=== PATIENT | male | born 1965 | race African-American/Black ===

== ENCOUNTER 2017-12-07 16:43 | Inpatient (IN) | payer OTHER ==
[2017-12-07 19:52] VITALS: BMI 20.5
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
[2017-12-07] MEDS ORDERED: ALBUTEROL SO4 18 GM HFA INHALER IH PRN (21:10)
[2017-12-07] MEDS ORDERED: P-EPHED 60MG/TRIPROLIDI 2.5MG TABLET PO PRN (21:12)
[2017-12-07] MEDS ORDERED: MENTHOL/PHENOL 1 EACH UD MM PRN (21:12)
[2017-12-07] MEDS ORDERED: MAGNESIUM HYDROX 2400MG/30ML ORAL SUSPENSION 30 ML CUP PO PRN (21:12)
[2017-12-07] MEDS ORDERED: NICOTINE POLACRILEX 2 MG GUM BC PRN (21:12)
[2017-12-07] MEDS ORDERED: hydrOXYzine PAMOATE 50 MG CAPSULE (FP) PO PRN (21:12)
[2017-12-07] MEDS ORDERED: MAG HYDROX/AL HYDROX/SIMETH 30 ML UNIT-DOSE CUP PO PRN (21:12)
[2017-12-07] MEDS ORDERED: chlordiazePOXIDE HCL 25 MG CAPSULE PO PRN (21:12)
[2017-12-07] MEDS ORDERED: ACETAMINOPHEN 325 MG TABLET (FP) PO PRN (21:12)
[2017-12-07] MEDS ORDERED: MAGNESIUM CITRATE 300 ML BOTTLE PO PRN (21:12)
[2017-12-07] MEDS ORDERED: IBUPROFEN 400 MG TABLET (FP) PO PRN (21:12)
[2017-12-07] MEDS ORDERED: MELATONIN 5 MG TABLETS PO PRN (22:00)
[2017-12-07] MEDS: THIAMINE HCL 100 MG TABLET (FP) PO SCH (22:58)
[2017-12-07] MEDS: BUPRENORPHINE/NALOXONE 8 MG/2 MG FILM PACKET SL SCH (22:58)
[2017-12-07] MEDS: cloNIDine HCL 0.1 MG TABLET PO SCH (22:58)
[2017-12-07] MEDS: chlordiazePOXIDE HCL 25 MG CAPSULE PO SCH (22:59)
[2017-12-08] MEDS: BUPRENORPHINE/NALOXONE 8 MG/2 MG FILM PACKET SL SCH ×3 (05:42→22:24)
[2017-12-08] MEDS: chlordiazePOXIDE HCL 25 MG CAPSULE PO SCH ×4 (05:42→22:24)
[2017-12-08 10:23] LABS: HEMATOCRIT 35.5 % (35.4-49); HEMOGLOBIN 12.3 GM/dL (11.7-16.9); MCH 33.6 pg (25.7-33.7); MCHC 34.7 g/dl (32.0-35.9); MEAN CELL VOLUME 96.9 fl (80-96); MEAN PLT VOLUME 8.1 fl (7.5-11.1); PLATELET COUNT 242 K/MM3 (134-434); RBC 3.67 M/mm3 (4.00-5.60); WHITE BLOOD COUNT 6.6 K/mm3 (4.0-10.0)
[2017-12-08 10:28] LABS: ALBUMIN 3.2 g/dl (3.4-5.0); ANION GAP 5 (8-16); BLOOD UREA NITROGEN 22 mg/dL (7-18); CALCIUM 8.8 mg/dL (8.5-10.1); CHLORIDE 106 mmol/L (98-107); CO2 30 mmol/L (21-32); GLUCOSE,RANDOM 106 mg/dL (74-106); POTASSIUM 4.1 mmol/L (3.5-5.1); SODIUM 141 mmol/L (136-145)
[2017-12-08 10:33] LABS: ALK PHOS 130 U/L (45-117); BILIRUBIN,TOTAL 0.4 mg/dL (0.2-1.0); CREATININE 1.7 mg/dL (0.7-1.3); SGOT/AST 57 U/L (15-37); SGPT/ALT 33 U/L (12-78)
[2017-12-08] MEDS: PRENATAL VITAMINS W/ FOLIC ACID TABLET (FP) PO SCH (10:38)
[2017-12-08] MEDS: PANTOPRAZOLE 40 MG TABLET (FP) PO SCH (10:38)
[2017-12-08] MEDS: ASPIRIN COATED 81 MG TABLET.EC PO SCH (10:38)
[2017-12-08] MEDS: NIFEdipine E.R. 30 MG TABLET (FP) PO SCH (10:38)
[2017-12-08] MEDS: cloNIDine HCL 0.1 MG TABLET PO SCH ×2 (10:38→22:24)
[2017-12-08] MEDS: NICOTINE 14 MG/24 HOURS TOPICAL PATCH TD SCH (10:39)
[2017-12-08] MEDS: guaiFENesin/D-METHORPHAN HB 10 ML UNIT-DOSE CUPS PO PRN (10:40)
[2017-12-08 10:54] LABS: URINE APPEARANCE CLEAR; URINE BILIRUBIN NEGATIVE (<2.0 mg/dL); URINE BLOOD NEGATIVE (NEGATIVE); URINE COLOR YELLOW; URINE GLUCOSE (UA) NEGATIVE (NEGATIVE); URINE KETONE NEGATIVE (NEGATIVE); URINE LEUK ESTERASE NEGATIVE (NEGATIVE); URINE NITRITE NEGATIVE (NEGATIVE); URINE PROTEIN NEGATIVE (NEGATIVE); URINE UROBILINOGEN NEGATIVE mg/dL (0.2-1.0)
--- NOTE | 2017-12-08 11:35 | EKG ---
Test Reason : Blood Pressure : / mmHG Vent. Rate : 056 BPM Atrial Rate : 056 BPM P-R Int : 162 ms QRS Dur : 108 ms QT Int : 428 ms P-R-T Axes : 083 068 058 degrees QTc Int : 413 ms SINUS BRADYCARDIA OTHERWISE NORMAL ECG WHEN COMPARED WITH ECG OF 07-DEC-2017 23:06, NO SIGNIFICANT CHANGE WAS FOUND Confirmed by IDRIS GATES MD ([id number]) on 12/08/2017 11:35:05 AM Referred By: Confirmed By:IDRIS GATES MD
--- NOTE | 2017-12-08 11:36 | EKG ---
Test Reason : Blood Pressure : / mmHG Vent. Rate : 052 BPM Atrial Rate : 052 BPM P-R Int : 168 ms QRS Dur : 104 ms QT Int : 428 ms P-R-T Axes : 086 063 064 degrees QTc Int : 398 ms SINUS BRADYCARDIA POSSIBLE ANTERIOR INFARCT , AGE UNDETERMINED ABNORMAL ECG WHEN COMPARED WITH ECG OF 18-JUL-2017 18:54, PREMATURE VENTRICULAR COMPLEXES ARE NO LONGER PRESENT Confirmed by KODY TREJO, IDRIS ([id number]) on 12/08/2017 11:36:12 AM Referred By: Confirmed By:IDRIS GATES MD
[2017-12-08] MEDS: AMMONIUM LACTATE 12% LOTION 225 GM BOTTLE TP SCH (14:46)
--- NOTE | 2017-12-08 16:15 | PN ---
[facility] CIWA - CIWA Score Nausea/Vomitin-No Nausea/No Vomiting Muscle Tremors: 3 Anxiety: 4-Mod. Anxious/Guarded Agitation: 4-Moderately Restless Paroxysmal Sweats: No Perspiration Orientation: 0-Oriented Tacttile Disturbances: 3-Moderate Itch/Numb/Burn Auditory Disturbances: 2-Mild Harshness/Frighten Visual Disturbances: 1-Very Mild Sensitivity Headache: 0-None Present CIWA-Ar Total Score: 17 S Progress Note (SOAP) Subjective: Diarrhea, Stomach Cramping, Interrupted Sleep, Body Aches, Tremors. Objective: PATIENT A & O X 3, OBSERVED AMBULATING ON UNIT. NO ACUTE DISTRESS. PATIENT DENIES CHEST PAIN. 12/08/17 16:13 Vital Signs Temperature 96.6 F L 12/08/17 14:39 Pulse Rate 80 12/08/17 14:39 Respiratory Rate 18 12/08/17 14:39 Blood Pressure 101/76 12/08/17 14:39 O2 Sat by Pulse Oximetry (%) Laboratory Tests 12/07/17 12/08/17 12/08/17 23:08 07:40 07:40 WBC 6.6 D RBC 3.67 L Hgb 12.3 Hct 35.5 MCV 96.9 H MCH 33.6 MCHC 34.7 RDW 14.0 Plt Count 242 MPV 8.1 Sodium Potassium Chloride Carbon Dioxide Anion Gap BUN Creatinine Creat Clearance w eGFR Random Glucose Calcium Total Bilirubin AST ALT Alkaline Phosphatase Total Protein Albumin Urine Color Yellow Urine Appearance Clear Urine pH 5.0 Ur Specific [place] 1.019 Urine Protein Negative Urine Glucose (UA) Negative Urine Ketones Negative Urine Blood Negative Urine Nitrite Negative Urine Bilirubin Negative Urine Urobilinogen Negative Ur Leukocyte Esterase Negative RPR Titer HIV 1&2 Antibody Screen Negative HIV P24 Antigen Negative 12/08/17 12/08/17 07:40 07:40 WBC RBC Hgb Hct MCV MCH MCHC RDW Plt Count MPV Sodium 141 Potassium 4.1 Chloride 106 Carbon Dioxide 30 Anion Gap 5 L BUN 22 H D Creatinine 1.7 H D Creat Clearance w eGFR 42.37 Random Glucose 106 D Calcium 8.8 Total Bilirubin 0.4 AST 57 H D ALT 33 Alkaline Phosphatase 130 H Total Protein 6.0 L D Albumin 3.2 L D Urine Color Urine Appearance Urine pH Ur Specific [place] Urine Protein Urine Glucose (UA) Urine Ketones Urine Blood Urine Nitrite Urine Bilirubin Urine Urobilinogen Ur Leukocyte Esterase RPR Titer Nonreactive HIV 1&2 Antibody Screen HIV P24 Antigen LABS NOTED. Assessment: 12/08/17 16:14 WITHDRAWAL SYMPTOMS. Plan: CONTINUE DETOX. INCREASE DAILY PO FLUID INTAKE. D/C IBUPROFEN AND MAGNESIUM-CONTAINING MEDS. FOR ABNORMAL ADMISSION RENAL LAB VALUES. BMP ON 12/10/2017.
[2017-12-08] MEDS: LOPERAMIDE HCL 2 MG CAPSULE PO PRN (16:29)
[2017-12-08] MEDS ORDERED: BISMUTH SUBSALICYLATE 524 MG/30 ML UD PO PRN (16:30)
--- NOTE | 2017-12-08 16:58 | CONSULT ---
[facility] Psychiatric Consult - Data Date of interview: 12/08/17 Admission source: [facility] Identifying data: Readmission to [facility] for this 52 y/o AA male seeking detox treatment on for heroin,alcohol and cocaine dependence.Patient is ,a father of five (claimed nine to another clinician),homeless, unemployed and supported on welfare. Substance Abuse History: Confirmed by patient in my interview.Details in current [facility] report : Smoking history: Current every day smoker. Have you smoked in the past 12 months: Yes. Aproximately how many cigarettes per day: 10. Cigars Per Day: 0. Hx Chewing Tobacco Use: No. Initiated information on smoking cessation: Yes. 'Breaking Loose' booklet given: 12/07/17. - Substance & Tx. History. Hx Alcohol Use: Yes. Hx Substance Use: Yes. Substance Use Type : Alcohol, Cocaine, Heroin. Hx Substance Use Treatment: Yes ([facility]). - Substances Abused. Alcohol. Route: Oral. Frequency: Daily. Amount used: BEER- 1 CASE. Age of first use: 26. Date of Last Use: 12/06/17. Heroin. Route: Inhalation. Frequency: 3-6 times per week. Amount used: 2 BAGS. Age of first use: 34. Date of Last Use: 12/05/17 Medical History: Bronchial asthma,chronic renal disease,past episode of transient ischemic attack (TIA),hypertension,GERD,antecedent of myocardial infarction(1988) and a history of lung surgery () + past treatment fo gonorrhea. Psychiatric History: Past history of one psychiatric hospitalization at [facility].Diagnosed with MDD in 2016.Patient reports that he used to be prescribed prozac 50 mg/day.NOT taken for 15 months as per own account.Lost to psychiatric follow up for several months.Previously known to [employer].Mr Bui denies history of suicide attempts. Physical/Sexual Abuse/Trauma History: Patient denies. Additional Comment: Urine Drug Screen Results: ATA-Cocaine, OPI-Opiates.Noted. Mental Status Exam - Mental Status Exam Alert and Oriented to: Time, Place, Person Cognitive Function: Good Patient Appearance: Well Groomed (thin habitus,medium height,hairstyle : dreadlocks) Mood: Nervous, Withdrawn Affect: Mood Congruent Patient Behavior: Fatigued, Appropriate, Cooperative Speech Pattern: Clear Voice Loudness: Normal Thought Process: Goal Oriented Thought Disorder: Not Present Hallucinations: Denies Suicidal Ideation: Denies Homicidal Ideation: Denies Sleep: Poorly, Difficulty falling asleep Appetite: Good Muscle strength/Tone: Normal Gait/Station: Normal Psychiatric Findings - Problem List ([place] 1, 2,3) (1) Opioid dependence with withdrawal Current Visit: Yes Status: Acute (2) Alcohol dependence with uncomplicated withdrawal Current Visit: Yes Status: Acute (3) Cocaine dependence Current Visit: Yes Status: Acute Qualifiers: Substance use status: uncomplicated Qualified Code(s): F14.20 - Cocaine dependence, uncomplicated Comment: (4) Nicotine dependence Current Visit: Yes Status: Acute Qualifiers: Nicotine product type: cigarettes Substance use status: uncomplicated Qualified Code(s): F17.210 - Nicotine dependence, cigarettes, uncomplicated (5) Substance induced mood disorder Current Visit: Yes Status: Acute (6) Insomnia Current Visit: Yes Status: Acute - Initial Treatment Plan Initial Treatment Plan: Psychoeducation.Sleep hygiene.Detoxification.Ambien 10 mg po hs prn.Patient is made aware of potential for parasomnias.Agrees with this plan of care.Observation.
[2017-12-08] MEDS: THIAMINE HCL 100 MG TABLET (FP) PO SCH (22:24)
[2017-12-08] MEDS: ZOLPIDEM TARTRATE 10 MG TABLET (PARK CARE ONLY) PO PRN (23:53)
[2017-12-09] MEDS: chlordiazePOXIDE HCL 25 MG CAPSULE PO SCH ×3 (05:50→18:15)
[2017-12-09] MEDS: BUPRENORPHINE/NALOXONE 8 MG/2 MG FILM PACKET SL SCH ×3 (05:50→22:25)
[2017-12-09] MEDS: cloNIDine HCL 0.1 MG TABLET PO SCH ×2 (10:37→22:25)
[2017-12-09] MEDS: PANTOPRAZOLE 40 MG TABLET (FP) PO SCH (10:37)
[2017-12-09] MEDS: AMMONIUM LACTATE 12% LOTION 225 GM BOTTLE TP SCH (10:37)
[2017-12-09] MEDS: ASPIRIN COATED 81 MG TABLET.EC PO SCH (10:37)
[2017-12-09] MEDS: NIFEdipine E.R. 30 MG TABLET (FP) PO SCH (10:37)
[2017-12-09] MEDS: PRENATAL VITAMINS W/ FOLIC ACID TABLET (FP) PO SCH (10:37)
[2017-12-09] MEDS: NICOTINE 14 MG/24 HOURS TOPICAL PATCH TD SCH (10:38)
[2017-12-09] MEDS: LIDOCAINE 5% TOPICAL PATCH TP SCH (10:41)
[2017-12-09] MEDS ORDERED: COLLOIDAL OATMEAL 1 BAR EACH TP PRN (11:27)
[2017-12-09] MEDS: guaiFENesin/D-METHORPHAN HB 10 ML UNIT-DOSE CUPS PO PRN (12:58)
--- NOTE | 2017-12-09 20:11 | PN ---
[facility] CIWA - CIWA Score Nausea/Vomitin-No Nausea/No Vomiting Muscle Tremors: 3 Anxiety: 4-Mod. Anxious/Guarded Agitation: 4-Moderately Restless Paroxysmal Sweats: No Perspiration Orientation: 0-Oriented Tacttile Disturbances: 2-Mild Itch/Numbness/Burn Auditory Disturbances: 1-Very Mild Visual Disturbances: 2-Mild Sensitivity Headache: 0-None Present CIWA-Ar Total Score: 16 S Progress Note (SOAP) Subjective: Nausea, Tremors, Body Aches, Fatigue. Patient reports swelling in bilateral lower legs and feet. Patient denies any history of IV drug injection in legs. Patient reports history of vascular disorder and that similar condition has occurred in past. Objective: PATIENT A & O X 3, OBSERVED AMBULATING ON UNIT. NO ACUTE DISTRESS. SWELLING NOTED IN BILATERAL ANKLES AND FEET. NO ERYTHEMA OR WOUNDS NOTED. 12/09/17 20:07 Vital Signs Temperature 97.0 F L 12/09/17 17:55 Pulse Rate 67 12/09/17 17:55 Respiratory Rate 18 12/09/17 17:55 Blood Pressure 129/79 12/09/17 17:55 O2 Sat by Pulse Oximetry (%) Laboratory Tests 12/07/17 12/08/17 12/08/17 23:08 07:40 07:40 WBC 6.6 D RBC 3.67 L Hgb 12.3 Hct 35.5 MCV 96.9 H MCH 33.6 MCHC 34.7 RDW 14.0 Plt Count 242 MPV 8.1 Sodium Potassium Chloride Carbon Dioxide Anion Gap BUN Creatinine Creat Clearance w eGFR Random Glucose Calcium Total Bilirubin AST ALT Alkaline Phosphatase Total Protein Albumin Urine Color Yellow Urine Appearance Clear Urine pH 5.0 Ur Specific [place] 1.019 Urine Protein Negative Urine Glucose (UA) Negative Urine Ketones Negative Urine Blood Negative Urine Nitrite Negative Urine Bilirubin Negative Urine Urobilinogen Negative Ur Leukocyte Esterase Negative RPR Titer HIV 1&2 Antibody Screen Negative HIV P24 Antigen Negative 12/08/17 12/08/17 07:40 07:40 WBC RBC Hgb Hct MCV MCH MCHC RDW Plt Count MPV Sodium 141 Potassium 4.1 Chloride 106 Carbon Dioxide 30 Anion Gap 5 L BUN 22 H D Creatinine 1.7 H D Creat Clearance w eGFR 42.37 Random Glucose 106 D Calcium 8.8 Total Bilirubin 0.4 AST 57 H D ALT 33 Alkaline Phosphatase 130 H Total Protein 6.0 L D Albumin 3.2 L D Urine Color Urine Appearance Urine pH Ur Specific [place] Urine Protein Urine Glucose (UA) Urine Ketones Urine Blood Urine Nitrite Urine Bilirubin Urine Urobilinogen Ur Leukocyte Esterase RPR Titer Nonreactive HIV 1&2 Antibody Screen HIV P24 Antigen LABS NOTED. 12/09/17 20:10 Assessment: 12/09/17 20:08 WITHDRAWAL SYMPTOMS. Plan: CONTINUE DETOX. PATIENT ADVISED TO ELEVATE FEET MUCH POSSIBLE WHEN LYING BED.
[2017-12-09] MEDS: THIAMINE HCL 100 MG TABLET (FP) PO SCH (22:25)
[2017-12-09] MEDS: ZOLPIDEM TARTRATE 10 MG TABLET (PARK CARE ONLY) PO PRN (22:25)
[2017-12-09] MEDS: LIDOCAINE PATCH REMOVAL MC SCH (22:26)
[2017-12-09] MEDS: LOPERAMIDE HCL 2 MG CAPSULE PO PRN (22:29)
[2017-12-09] MEDS: chlordiazePOXIDE 5 MG CAPSULE PO SCH (22:29)
[2017-12-10] MEDS: chlordiazePOXIDE 5 MG CAPSULE PO SCH ×3 (05:38→17:28)
[2017-12-10] MEDS: BUPRENORPHINE/NALOXONE 8 MG/2 MG FILM PACKET SL SCH ×3 (05:39→22:32)
[2017-12-10 10:04] LABS: ANION GAP 2 (8-16); BLOOD UREA NITROGEN 16 mg/dL (7-18); CALCIUM 8.5 mg/dL (8.5-10.1); CHLORIDE 107 mmol/L (98-107); CO2 32 mmol/L (21-32); CREATININE 1.5 mg/dL (0.7-1.3); GLUCOSE,RANDOM 77 mg/dL (74-106); POTASSIUM 4.2 mmol/L (3.5-5.1); SODIUM 141 mmol/L (136-145)
[2017-12-10] MEDS: PANTOPRAZOLE 40 MG TABLET (FP) PO SCH (10:35)
[2017-12-10] MEDS: PRENATAL VITAMINS W/ FOLIC ACID TABLET (FP) PO SCH (10:35)
[2017-12-10] MEDS: ASPIRIN COATED 81 MG TABLET.EC PO SCH (10:35)
[2017-12-10] MEDS: NIFEdipine E.R. 30 MG TABLET (FP) PO SCH (10:35)
[2017-12-10] MEDS: cloNIDine HCL 0.1 MG TABLET PO SCH ×2 (10:35→22:32)
[2017-12-10] MEDS: NICOTINE 14 MG/24 HOURS TOPICAL PATCH TD SCH (10:36)
[2017-12-10] MEDS: AMMONIUM LACTATE 12% LOTION 225 GM BOTTLE TP SCH (10:36)
[2017-12-10] MEDS: LIDOCAINE 5% TOPICAL PATCH TP SCH (10:37)
--- NOTE | 2017-12-10 11:13 | PN ---
[facility] Progress Note (SOAP) Subjective: Shakes sleep disturbance Objective: 12/10/17 11:09 A & O x 3 Ambulating steadily on unit Assessment: 12/10/17 11:09 withdrawal sx Plan: continue detox for repeat labs
[2017-12-10] MEDS: THIAMINE HCL 100 MG TABLET (FP) PO SCH (22:31)
[2017-12-10] MEDS: ZOLPIDEM TARTRATE 10 MG TABLET (PARK CARE ONLY) PO PRN (22:31)
[2017-12-10] MEDS: chlordiazePOXIDE HCL 10 MG CAPSULE PO SCH (22:31)
[2017-12-10] MEDS: LIDOCAINE PATCH REMOVAL MC SCH (23:11)
[2017-12-11] MEDS: chlordiazePOXIDE HCL 10 MG CAPSULE PO SCH (05:27)
[2017-12-11] MEDS: BUPRENORPHINE/NALOXONE 8 MG/2 MG FILM PACKET SL SCH (05:27)
[2017-12-11 09:31] VITALS: BP 154/100; PULSE 72; TEMP 98.3
--- NOTE | 2017-12-11 10:10 | PN ---
Psychiatric Progress Note Vital Signs: Vital Signs Period Temp Pulse Resp BP Sys/Henriquez Pulse Ox Last 24 Hr 96.0 F-98.3 F 64-81 16-18 115-154/79-100 Date of Session: 12/11/17 Chief Complaint:: " I want script for ambien." Current Medications: Active Medications Generic Name Dose Route Start Last Admin Trade Name Freq PRN Reason Stop Dose Admin Acetaminophen 650 mg 12/07/17 21:12 Tylenol - PO Q4H PRN FEVER Albuterol Sulfate 2 puff 12/07/17 21:10 Ventolin Hfa Inhaler - IH Q4H PRN ASTHMA Aspirin 81 mg 12/08/17 10:00 12/10/17 10:35 Ecotrin - PO 81 mg DAILY CHYNA Administration Bismuth Subsalicylate 524 mg 12/08/17 16:30 Pepto-Bismol - PO BID PRN DYSPEPSIA Buprenorphine/Naloxone 1 each 12/07/17 22:00 12/11/17 05:27 Suboxone 8mg/2mg Sl Film - SL 12/14/17 21:59 1 each TID CHYNA Administration Chlordiazepoxide HCl 10 mg 12/10/17 23:00 12/11/17 05:27 Librium - PO 12/11/17 17:01 10 mg A2F-TFO CHYNA Administration Clonidine 0.2 mg 12/07/17 22:00 12/10/17 22:32 Catapres - PO 0.2 mg BID CHYNA Administration Colloidal Oatmeal 1 applic 12/09/17 11:27 Aveeno Soap - TP DAILY PRN HYGEINE Eucalyptus/Menthol/Phenol/Sorbitol 1 each 12/07/17 21:12 Cepastat Lozenge - MM Q4H PRN SORE THROAT Guaifenesin 10 ml 12/07/17 21:12 12/09/17 12:58 Robitussin Dm - PO 10 ml Q6H PRN Administration COUGH Hydroxyzine Pamoate 50 mg 12/07/17 21:12 Vistaril - PO Q4H PRN AGITATION Lactic Acid 1 applic 12/08/17 10:00 12/10/17 10:36 Lac-Hydrin 12 TP 1 applic DAILY CHYNA Administration Lidocaine 1 patch 12/09/17 10:15 12/10/17 10:37 Lidoderm Patch - TP 1 patch DAILY CHYNA Administration Loperamide HCl 4 mg 12/07/17 21:12 12/09/17 22:29 Imodium - PO 4 mg Q6H PRN Administration DIARRHEA Melatonin 5 mg 12/07/17 22:00 Melatonin PO HS PRN INSOMNIA Miscellaneous 1 each 12/09/17 22:00 12/10/17 23:11 Lidoderm Patch Removal MC 1 each DAILY@2200 CHYNA Administration Nicotine 14 mg 12/08/17 10:00 12/10/17 10:36 Nicoderm Patch - TD 14 mg DAILY CHYNA Administration Nicotine Polacrilex 2 mg 12/07/17 21:12 Nicorette Gum - BC Q2H PRN NICOTINE REPLACEMENT RX Nifedipine 30 mg 12/08/17 10:00 12/10/17 10:35 Procardia Xl - PO 30 mg DAILY CHYNA Administration Pantoprazole Sodium 40 mg 12/08/17 10:00 12/10/17 10:35 Protonix - PO 40 mg DAILY CHYNA Administration Multivit/Folic Acid/Iron 1 tab 12/08/17 10:00 12/10/17 10:35 Vitamins (Sjr) - PO 1 tab DAILY CHYNA Administration Pseudoephedrine/Triprolidine 1 combo 12/07/17 21:12 Actifed - PO TID PRN NASAL CONGESTION Thiamine HCl 100 mg 12/07/17 22:00 12/10/17 22:31 Vitamin B1 - PO 100 mg HS CHYNA Administration Zolpidem Tartrate 10 mg 12/08/17 22:00 12/10/17 22:31 Ambien - PO 10 mg HS PRN Administration INSOMNIA Psychiatric Treatment Plan - Problem List (3) Cocaine dependence Qualifiers: Substance use status: uncomplicated Qualified Code(s): F14.20 - Cocaine dependence, uncomplicated Comment: (4) Nicotine dependence Qualifiers: Nicotine product type: cigarettes Substance use status: uncomplicated Qualified Code(s): F17.210 - Nicotine dependence, cigarettes, uncomplicated (6) Insomnia Qualifiers: Insomnia type: unspecified Qualified Code(s): G47.00 - Insomnia, unspecified
[2017-12-11] MEDS: cloNIDine HCL 0.1 MG TABLET PO SCH (10:30)
[2017-12-11] MEDS: NIFEdipine E.R. 30 MG TABLET (FP) PO SCH (10:30)
[2017-12-11] MEDS: PRENATAL VITAMINS W/ FOLIC ACID TABLET (FP) PO SCH (10:30)
[2017-12-11] MEDS: ASPIRIN COATED 81 MG TABLET.EC PO SCH (10:30)
[2017-12-11] MEDS: PANTOPRAZOLE 40 MG TABLET (FP) PO SCH (10:30)
[2017-12-11] MEDS: NICOTINE 14 MG/24 HOURS TOPICAL PATCH TD SCH (11:15)
[2017-12-11] MEDS: AMMONIUM LACTATE 12% LOTION 225 GM BOTTLE TP SCH (11:15)
[2017-12-11] MEDS: LIDOCAINE 5% TOPICAL PATCH TP SCH (11:16)
--- NOTE | 2017-12-11 12:12 | PN ---
[facility] Progress Note (SOAP) Subjective: Patient denies current Detox symptoms and reports that he feels well overall. Objective: PATIENT A & O X 3, OBSERVED AMBULATING ON UNIT. NO ACUTE DISTRESS. 12/11/17 12:11 Vital Signs Temperature 98.3 F 12/11/17 09:30 Pulse Rate 72 12/11/17 09:30 Respiratory Rate 18 12/11/17 09:30 Blood Pressure 154/100 12/11/17 09:30 O2 Sat by Pulse Oximetry (%) Laboratory Tests 12/07/17 12/08/17 12/08/17 23:08 07:40 07:40 WBC 6.6 D RBC 3.67 L Hgb 12.3 Hct 35.5 MCV 96.9 H MCH 33.6 MCHC 34.7 RDW 14.0 Plt Count 242 MPV 8.1 Sodium Potassium Chloride Carbon Dioxide Anion Gap BUN Creatinine Creat Clearance w eGFR Random Glucose Calcium Total Bilirubin AST ALT Alkaline Phosphatase Total Protein Albumin Urine Color Yellow Urine Appearance Clear Urine pH 5.0 Ur Specific [place] 1.019 Urine Protein Negative Urine Glucose (UA) Negative Urine Ketones Negative Urine Blood Negative Urine Nitrite Negative Urine Bilirubin Negative Urine Urobilinogen Negative Ur Leukocyte Esterase Negative RPR Titer HIV 1&2 Antibody Screen Negative HIV P24 Antigen Negative 12/08/17 12/08/17 12/10/17 07:40 07:40 07:00 WBC RBC Hgb Hct MCV MCH MCHC RDW Plt Count MPV Sodium 141 141 Potassium 4.1 4.2 Chloride 106 107 Carbon Dioxide 30 32 Anion Gap 5 L 2 L BUN 22 H D 16 D Creatinine 1.7 H D 1.5 H Creat Clearance w eGFR 42.37 Random Glucose 106 D 77 D Calcium 8.8 8.5 Total Bilirubin 0.4 AST 57 H D ALT 33 Alkaline Phosphatase 130 H Total Protein 6.0 L D Albumin 3.2 L D Urine Color Urine Appearance Urine pH Ur Specific [place] Urine Protein Urine Glucose (UA) Urine Ketones Urine Blood Urine Nitrite Urine Bilirubin Urine Urobilinogen Ur Leukocyte Esterase RPR Titer Nonreactive HIV 1&2 Antibody Screen HIV P24 Antigen LABS NOTED. Assessment: 12/11/17 12:12 COMPLETION OF DETOX REGIMEN. Plan: PATIENT SCHEDULED FOR DISCHARGE FROM DETOX UNIT TODAY.
--- NOTE | 2017-12-11 12:19 | DS ---
[facility] Detox Discharge Summary Admission Date: 12/07/17 Discharge Date: 12/11/17 - History Present History: Alcohol Dependence, Cocaine Dependence, Opioid Dependence Additional Comments: PATIENT GOING HOME FOR TIME BEING, AND WILL CONTACT [facility] ( [place] FOR POSSIBLE ADMISSION AT A LATER DATE. PATIENT ADVISED TO FOLLOW -UP WITH MEDICAL PROVIDER DR. Gregor BORRERO MD ([facility].) AFTER DISCHARGE FROM DETOX FOR MEDICAL EVALUATION AND FOR HISTORY OF HTN, FOR ABNORMAL RENAL LABS DROWN WHILE ADMITTED FOR DETOX, AND FOR SUBOXONE MAINTENANCE. PATIENT WAS DISCHARGED FORM DETOX UNIT IN STABLE MEDICAL CONDITION. Pertinent Past History: HTN, Depression, GERD, Dry Skin Dermatitis, Poor Skin Turgor, Asthma. - Physical Exam Results Vital Signs: Vital Signs Temperature 98.3 F 12/11/17 09:30 Pulse Rate 72 12/11/17 09:30 Respiratory Rate 18 12/11/17 09:30 Blood Pressure 154/100 12/11/17 09:30 O2 Sat by Pulse Oximetry (%) Pertinent Admission Physical Exam Findings: WITHDRAWAL SYMPTOMS. Laboratory Tests 12/07/17 12/08/17 12/08/17 23:08 07:40 07:40 WBC 6.6 D RBC 3.67 L Hgb 12.3 Hct 35.5 MCV 96.9 H MCH 33.6 MCHC 34.7 RDW 14.0 Plt Count 242 MPV 8.1 Sodium Potassium Chloride Carbon Dioxide Anion Gap BUN Creatinine Creat Clearance w eGFR Random Glucose Calcium Total Bilirubin AST ALT Alkaline Phosphatase Total Protein Albumin Urine Color Yellow Urine Appearance Clear Urine pH 5.0 Ur Specific [place] 1.019 Urine Protein Negative Urine Glucose (UA) Negative Urine Ketones Negative Urine Blood Negative Urine Nitrite Negative Urine Bilirubin Negative Urine Urobilinogen Negative Ur Leukocyte Esterase Negative RPR Titer HIV 1&2 Antibody Screen Negative HIV P24 Antigen Negative 12/08/17 12/08/17 12/10/17 07:40 07:40 07:00 WBC RBC Hgb Hct MCV MCH MCHC RDW Plt Count MPV Sodium 141 141 Potassium 4.1 4.2 Chloride 106 107 Carbon Dioxide 30 32 Anion Gap 5 L 2 L BUN 22 H D 16 D Creatinine 1.7 H D 1.5 H Creat Clearance w eGFR 42.37 Random Glucose 106 D 77 D Calcium 8.8 8.5 Total Bilirubin 0.4 AST 57 H D ALT 33 Alkaline Phosphatase 130 H Total Protein 6.0 L D Albumin 3.2 L D Urine Color Urine Appearance Urine pH Ur Specific [place] Urine Protein Urine Glucose (UA) Urine Ketones Urine Blood Urine Nitrite Urine Bilirubin Urine Urobilinogen Ur Leukocyte Esterase RPR Titer Nonreactive HIV 1&2 Antibody Screen HIV P24 Antigen LABS NOTED. - Treatment Hospital Course: Detox Protocol Followed, Detoxed Safely, Responded well, Discharged Condition Good, Rehab Referral Accepted Patient has Accepted a Rehab Referral to: PT WILL APPLY FOR ADMISSION AT [facility] AT A LATER DATE. - Medication Discharge Medications: Ambulatory Orders Ammonium Lactate Lotion [Lac-Hydrin 12% Lotion -] 1 applic TP ASDIR 07/18/17 Esomeprazole Magnesium 40 mg PO DAILY 07/18/17 Nifedipine [Nifedipine ER] 30 mg PO DAILY 07/18/17 Albuterol Sulfate Inhaler - [Ventolin Hfa Inhaler -] 1 - 2 inh PO Q4H PRN #1 inhaler 12/11/17 Aspirin [Ecotrin] 81 mg PO DAILY #30 tablet.dr 12/11/17 Ferrous Sulfate [Feosol] 325 mg PO DAILY #30 tablet 12/11/17 Nifedipine ER [Procardia XL -] 30 mg PO DAILY #30 tab.er.24 12/11/17 - Diagnosis (1) Skin turgor poor Status: Acute (2) Alcohol dependence with uncomplicated withdrawal Status: Acute (3) Asthma Status: Chronic Qualifiers: Asthma severity: mild Asthma persistence: intermittent Asthma complication type: unspecified Qualified Code(s): J45.20 - Mild intermittent asthma, uncomplicated (4) Cocaine dependence Status: Acute Qualifiers: Substance use status: uncomplicated Qualified Code(s): F14.20 - Cocaine dependence, uncomplicated (5) Dry skin dermatitis Status: Chronic (6) GERD (gastroesophageal reflux disease) Status: Chronic Qualifiers: Esophagitis presence: esophagitis presence not specified Qualified Code(s) : K21.9 - Gastro-esophageal reflux disease without esophagitis (7) HTN (hypertension) Status: Chronic Qualifiers: Hypertension type: essential hypertension Qualified Code(s): I10 - Essential (primary) hypertension (8) Nicotine dependence Status: Acute Qualifiers: Nicotine product type: cigarettes Substance use status: uncomplicated Qualified Code(s): F17.210 - Nicotine dependence, cigarettes, uncomplicated (9) Depression Status: Suspected Qualifiers: Depression Type: unspecified Qualified Code(s): F32.9 - Major depressive disorder, single episode, unspecified (10) Insomnia Status: Acute Qualifiers: Insomnia type: unspecified Qualified Code(s): G47.00 - Insomnia, unspecified (11) Opioid dependence with withdrawal Status: Acute (12) Substance induced mood disorder Status: Acute - AMA Did Patient Leave Against Medical Advice: No
== END 2017-12-11 11:40 | disposition home or self-care (01) | DRG 773 ==
LOC: YASAS 16:43 → Y3N 21:06
PROVIDERS: ADMIT Internal Medicine; ATTEND Internal Medicine
PROC: HZ2ZZZZ Detoxification Services for Substance Abuse Treatment (ICD-10-PCS; principal; 2017-12-07)
DX: F11.23 Opioid dependence with withdrawal (principal); F10.230 Alcohol dependence with withdrawal, uncomplicated; F14.20 Cocaine dependence, uncomplicated; F17.210 Nicotine dependence, cigarettes, uncomplicated; F32.9 Major depressive disorder, single episode, unspecified; F19.24 Other psychoactive substance dependence with psychoactive substance-induced mood disorder; I10 Essential (primary) hypertension; K21.9 Gastro-esophageal reflux disease without esophagitis; J45.20 Mild intermittent asthma, uncomplicated; R23.4 Changes in skin texture; L98.8 Other specified disorders of the skin and subcutaneous tissue; G47.00 Insomnia, unspecified; I25.2 Old myocardial infarction; Z86.73 Personal history of transient ischemic attack (TIA), and cerebral infarction without residual deficits; Z87.438 Personal history of other diseases of male genital organs
CPT/HCPCS: 36415; 80048; 80053; 81003; 85027; 86593; 87389; 93005; 93010; J0735

== ENCOUNTER 2020-04-09 15:33 | Inpatient (IN) | payer OTHER ==
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
[2020-04-09] MEDS ORDERED: MAGNESIUM HYDROX 2400MG/30ML ORAL SUSPENSION 30 ML CUP PO PRN (18:51)
[2020-04-09] MEDS ORDERED: BISMUTH SUBSALICYLATE 524 MG/30 ML UD PO PRN (18:51)
[2020-04-09] MEDS ORDERED: NICOTINE POLACRILEX 2 MG GUM BUC PRN (18:51)
[2020-04-09] MEDS ORDERED: ACETAMINOPHEN 325 MG TABLET (FP) PO PRN ×2 (18:51)
[2020-04-09] MEDS ORDERED: IBUPROFEN 400 MG TABLET (FP) PO PRN (18:51)
[2020-04-09] MEDS ORDERED: MAG HYDROX/AL HYDROX/SIMETH 30 ML UNIT-DOSE CUP PO PRN (18:51)
[2020-04-09] MEDS ORDERED: METHOCARBAMOL 500 MG TABLET PO PRN (18:51)
[2020-04-09] MEDS ORDERED: MENTHOL/PHENOL 1 EACH UD MM PRN (18:51)
[2020-04-09] MEDS ORDERED: MAGNESIUM CITRATE 300 ML BOTTLE PO PRN (18:51)
[2020-04-09] MEDS ORDERED: ONDANSETRON *ODT* 4 MG TABLET SL ONE (19:15)
[2020-04-09 20:00] VITALS: BMI 22.6
[2020-04-09] MEDS ORDERED: ALBUTEROL SO4 HFA INHALER IH PRN (20:48)
[2020-04-09] MEDS: chlordiazePOXIDE HCL 25 MG CAPSULE PO PRN (20:55)
[2020-04-09] MEDS ORDERED: CYCLOBENZAPRINE HCL 5 MG TABLET PO PRN (21:00)
[2020-04-09] MEDS: BUPRENORPHINE/NALOXONE 8 MG/2 MG FILM PACKET SL SCH (22:33)
[2020-04-09] MEDS: ATORVASTATIN CA 80 MG TABLET (FP) PO SCH (22:34)
[2020-04-09] MEDS: MELATONIN 5 MG TABLETS PO SCH (22:34)
[2020-04-09] MEDS: THIAMINE HCL 100 MG TABLET (FP) PO SCH (22:34)
[2020-04-09] MEDS: chlordiazePOXIDE HCL 25 MG CAPSULE PO SCH (22:38)
[2020-04-09] MEDS: AMMONIUM LACTATE 12% LOTION 225 GM BOTTLE TP SCH (22:46)
[2020-04-10] MEDS: chlordiazePOXIDE HCL 25 MG CAPSULE PO SCH ×4 (05:42→22:41)
--- NOTE | 2020-04-10 10:10 | EKG ---
Test Reason : Blood Pressure : / mmHG Vent. Rate : 072 BPM Atrial Rate : 072 BPM P-R Int : 148 ms QRS Dur : 098 ms QT Int : 436 ms P-R-T Axes : 084 069 069 degrees QTc Int : 477 ms NORMAL SINUS RHYTHM NON-SPECIFIC INTRA-VENTRICULAR CONDUCTION DELAY WHEN COMPARED WITH ECG OF 08-DEC-2017 09:20, QT HAS LENGTHENED Confirmed by MADAI CONWAY MD ([id number]) on 04/10/2020 10:10:20 AM Referred By: Confirmed By:MADAI CONWAY MD
[2020-04-10] MEDS: BUPRENORPHINE/NALOXONE 8 MG/2 MG FILM PACKET SL SCH ×2 (10:43→22:42)
[2020-04-10] MEDS: PANTOPRAZOLE 40 MG TABLET PO SCH (10:43)
[2020-04-10] MEDS: NIFEdipine E.R. 90 MG TABLET PO SCH (10:44)
[2020-04-10] MEDS: NICOTINE 14 MG/24 HOURS TOPICAL PATCH TD SCH (10:44)
[2020-04-10] MEDS: ASPIRIN COATED 81 MG TABLET.EC PO SCH (10:44)
[2020-04-10] MEDS: PRENATAL VITAMINS W/ FOLIC ACID TABLET (FP) PO SCH (10:45)
[2020-04-10] MEDS: AMMONIUM LACTATE 12% LOTION 225 GM BOTTLE TP SCH ×2 (10:45→22:42)
--- NOTE | 2020-04-10 12:07 | PN ---
S CIWA - CIWA Score Nausea/Vomitin-No Nausea/No Vomiting Muscle Tremors: 3 Anxiety: 3 Agitation: 2 Paroxysmal Sweats: 3 Orientation: 0-Oriented Tacttile Disturbances: 0-None Auditory Disturbances: 1-Very Mild Visual Disturbances: 0-None Headache: 0-None Present CIWA-Ar Total Score: 12 BHS Progress Note (SOAP) Subjective: Complaints of anxiety, tremors, sweats, and noise sensitivity. Objective: 04/10/20 12:06 Vital Signs 04/10/20 04/10/20 04/10/20 04:15 05:15 07:24 Temperature 97.3 F L 98.2 F Pulse Rate 70 56 L 61 Respiratory 18 18 Rate Blood Pressure 141/109 H 145/96 O2 Sat by Pulse 97 96 96 Oximetry (%) labs pending. Assessment: 04/10/20 12:07 Patient was seen and evaluated at bedside, alert and oriented x3, in no acute respiratory distress. Full ROM, ambulating without assistance. Skin warm to touch without lesion. Withdrawal symptoms. Plan: Continue detox protocol.
[2020-04-10 12:27] LABS: HEMATOCRIT 41.2 % (35.4-49); HEMOGLOBIN 13.7 GM/dL (11.7-16.9); MCH 32.6 pg (25.7-33.7); MCHC 33.3 g/dl (32.0-35.9); MEAN CELL VOLUME 97.9 fl (80-96); MEAN PLT VOLUME 8.9 fl (7.5-11.1); PLATELET COUNT 261 K/MM3 (134-434); RBC 4.21 M/mm3 (4.00-5.60); RDW 15.4 % (11.9-15.9); WHITE BLOOD COUNT 3.7 K/mm3 (4.0-10.0)
[2020-04-10 12:38] LABS: ALBUMIN 2.9 g/dl (3.4-5.0); BILIRUBIN,TOTAL 0.7 mg/dL (0.2-1); BLOOD UREA NITROGEN 16.6 mg/dL (7-18); CALCIUM 8.9 mg/dL (8.5-10.1); CREATININE 1.4 mg/dL (0.55-1.3); POTASSIUM 3.4 mmol/L (3.5-5.1); TOT PROT 6.7 g/dl (6.4-8.2)
[2020-04-10] MEDS: chlordiazePOXIDE HCL 25 MG CAPSULE PO PRN (13:34)
[2020-04-10] MEDS: MELATONIN 5 MG TABLETS PO SCH (22:40)
[2020-04-10] MEDS: THIAMINE HCL 100 MG TABLET (FP) PO SCH (22:41)
[2020-04-10] MEDS: ATORVASTATIN CA 80 MG TABLET (FP) PO SCH (22:41)
[2020-04-11] MEDS: chlordiazePOXIDE HCL 25 MG CAPSULE PO SCH ×4 (06:40→22:15)
[2020-04-11] MEDS: NICOTINE 14 MG/24 HOURS TOPICAL PATCH TD SCH (10:45)
[2020-04-11] MEDS: PANTOPRAZOLE 40 MG TABLET PO SCH (10:46)
[2020-04-11] MEDS: AMMONIUM LACTATE 12% LOTION 225 GM BOTTLE TP SCH ×2 (10:46→22:15)
[2020-04-11] MEDS: BUPRENORPHINE/NALOXONE 8 MG/2 MG FILM PACKET SL SCH ×2 (10:46→22:15)
[2020-04-11] MEDS: NIFEdipine E.R. 90 MG TABLET PO SCH (10:46)
[2020-04-11] MEDS: PRENATAL VITAMINS W/ FOLIC ACID TABLET (FP) PO SCH (10:46)
[2020-04-11] MEDS: ASPIRIN COATED 81 MG TABLET.EC PO SCH (11:45)
--- NOTE | 2020-04-11 14:28 | PN ---
[facility] CIWA - CIWA Score Nausea/Vomitin-Mild Nausea/No Vomiting Muscle Tremors: 2 Anxiety: 2 Agitation: 2 Paroxysmal Sweats: 2 Orientation: 0-Oriented Tacttile Disturbances: 0-None Auditory Disturbances: 0-None Visual Disturbances: 0-None Headache: 0-None Present CIWA-Ar Total Score: 9 S Progress Note (SOAP) Subjective: Back pain, constipation Objective: 04/11/20 14:24 Last Vital Signs Temp Pulse Resp BP Pulse Ox 97.5 F L 100 H 16 133/91 100 04/11/20 09:08 04/11/20 09:08 04/11/20 09:08 04/11/20 09:08 04/11/20 03:58 Elevated b/p noted: has htn, on meds Laboratory Tests 04/09/20 04/10/20 04/10/20 20:00 07:50 07:50 WBC 3.7 L RBC 4.21 Hgb 13.7 Hct 41.2 D MCV 97.9 H MCH 32.6 MCHC 33.3 RDW 15.4 Plt Count 261 MPV 8.9 Sodium 140 Potassium 3.4 L Chloride 103 Carbon Dioxide 31 Anion Gap 6 L BUN 16.6 Creatinine 1.4 H Est GFR (CKD-EPI)AfAm 64.63 Est GFR (CKD-EPI)NonAf 55.77 Random Glucose 79 Calcium 8.9 Total Bilirubin 0.7 AST 33 ALT 21 Alkaline Phosphatase 118 H Total Protein 6.7 Albumin 2.9 L Syphilis Serology COVID-19 (MELISSA) Not detected HIV Ag/Ab Combo Qual 04/10/20 04/10/20 07:50 21:25 WBC RBC Hgb Hct MCV MCH MCHC RDW Plt Count MPV Sodium Potassium Chloride Carbon Dioxide Anion Gap BUN Creatinine Est GFR (CKD-EPI)AfAm Est GFR (CKD-EPI)NonAf Random Glucose Calcium Total Bilirubin AST ALT Alkaline Phosphatase Total Protein Albumin Syphilis Serology Non-reactive COVID-19 (MELISSA) HIV Ag/Ab Combo Qual Negative Labs reviewed: K 3.4 (low), creatinine 1.4 (high), albumin 2.9 (low) Assessment: 04/11/20 14:26 Withdrawal sxs Noted with HTN, mild hypokalemia, MELVINA, hypoalbuminemia Plan: Continue detox Encourage PO water intake HTN: monitor b/p, continue antihypertensive medication Mild hypokalemia: start K Dur 40 meq tablet PO x 1 dose, repeat serum K level in AM MELVINA: encourage to drink more water, repeat BMP in AM Hypoalbuminemia: encourage diet, on ensure supplement
[2020-04-11] MEDS ORDERED: POTASSIUM CHLORIDE TABS 20 MEQ TABLET.ER (FP) PO ONE (14:45)
[2020-04-11] MEDS: ATORVASTATIN CA 80 MG TABLET (FP) PO SCH (22:15)
[2020-04-11] MEDS: THIAMINE HCL 100 MG TABLET (FP) PO SCH (22:15)
[2020-04-11] MEDS: MELATONIN 5 MG TABLETS PO SCH (22:18)
[2020-04-12] MEDS ORDERED: chlordiazePOXIDE HCL 10 MG CAPSULE PO PRN
[2020-04-12] MEDS: chlordiazePOXIDE HCL 10 MG CAPSULE PO SCH ×4 (08:23→22:04)
[2020-04-12] MEDS: PRENATAL VITAMINS W/ FOLIC ACID TABLET (FP) PO SCH (10:35)
[2020-04-12] MEDS: ASPIRIN COATED 81 MG TABLET.EC PO SCH (10:36)
[2020-04-12] MEDS: PANTOPRAZOLE 40 MG TABLET PO SCH (10:36)
[2020-04-12] MEDS: NIFEdipine E.R. 90 MG TABLET PO SCH (10:36)
[2020-04-12] MEDS: NICOTINE 14 MG/24 HOURS TOPICAL PATCH TD SCH (10:37)
[2020-04-12] MEDS: BUPRENORPHINE/NALOXONE 8 MG/2 MG FILM PACKET SL SCH ×2 (10:37→22:04)
[2020-04-12] MEDS: AMMONIUM LACTATE 12% LOTION 225 GM BOTTLE TP SCH ×2 (10:37→22:05)
--- NOTE | 2020-04-12 12:57 | PN ---
[facility] CIWA - CIWA Score Nausea/Vomitin-No Nausea/No Vomiting Muscle Tremors: 1-None Visible, but Mobile Anxiety: 2 Agitation: 2 Paroxysmal Sweats: No Perspiration Orientation: 0-Oriented Tacttile Disturbances: 1-Very Mild Itch/Numbness Auditory Disturbances: 0-None Visual Disturbances: 0-None Headache: 1-Very Mild CIWA-Ar Total Score: 7 S Progress Note (SOAP) Subjective: alert,irritable,anxious,interrupted sleep,aching pain Objective: 04/12/20 13:02 Vital Signs Temperature 98.1 F 04/12/20 09:07 Pulse Rate 7 L 04/12/20 09:07 Respiratory Rate 18 04/12/20 09:07 Blood Pressure 154/108 H 04/12/20 09:08 O2 Sat by Pulse Oximetry (%) 98 04/12/20 09:07 04/12/20 13:03 Laboratory Last Values WBC 3.7 K/mm3 (4.0-10.0) L 04/10/20 07:50 RBC 4.21 M/mm3 (4.00-5.60) 04/10/20 07:50 Hgb 13.7 GM/dL (11.7-16.9) 04/10/20 07:50 Hct 41.2 % (35.4-49) D 04/10/20 07:50 MCV 97.9 fl (80-96) H 04/10/20 07:50 MCH 32.6 pg (25.7-33.7) 04/10/20 07:50 MCHC 33.3 g/dl (32.0-35.9) 04/10/20 07:50 RDW 15.4 % (11.9-15.9) 04/10/20 07:50 Plt Count 261 K/MM3 (134-434) 04/10/20 07:50 MPV 8.9 fl (7.5-11.1) 04/10/20 07:50 Sodium 140 mmol/L (136-145) 04/10/20 07:50 Potassium 3.4 mmol/L (3.5-5.1) L 04/10/20 07:50 Chloride 103 mmol/L (98-107) 04/10/20 07:50 Carbon Dioxide 31 mmol/L (21-32) 04/10/20 07:50 Anion Gap 6 MMOL/L (8-16) L 04/10/20 07:50 BUN 16.6 mg/dL (7-18) 04/10/20 07:50 Creatinine 1.4 mg/dL (0.55-1.3) H 04/10/20 07:50 Est GFR (CKD-EPI)AfAm 64.63 04/10/20 07:50 Est GFR (CKD-EPI)NonAf 55.77 04/10/20 07:50 Random Glucose 79 mg/dL (74-106) 04/10/20 07:50 Calcium 8.9 mg/dL (8.5-10.1) 04/10/20 07:50 Total Bilirubin 0.7 mg/dL (0.2-1) 04/10/20 07:50 AST 33 U/L (15-37) 04/10/20 07:50 ALT 21 U/L (13-61) 04/10/20 07:50 Alkaline Phosphatase 118 U/L (45-117) H 04/10/20 07:50 Total Protein 6.7 g/dl (6.4-8.2) 04/10/20 07:50 Albumin 2.9 g/dl (3.4-5.0) L 04/10/20 07:50 Syphilis Serology Non-reactive (NONREACTIVE) 04/10/20 07:50 COVID-19 (MELISSA) Not detected (Not Detected) 04/09/20 20:00 HIV Ag/Ab Combo Qual Negative (NEGATIVE) 04/10/20 21:25 repeat bmp today Assessment: 04/12/20 13:03 withdrawal symptom Plan: continue detox librium regimen,encourage fluid
[2020-04-12 13:13] LABS: BLOOD UREA NITROGEN 23.5 mg/dL (7-18); CALCIUM 9.1 mg/dL (8.5-10.1); CREATININE 1.9 mg/dL (0.55-1.3); POTASSIUM 4.6 mmol/L (3.5-5.1)
[2020-04-12] MEDS: ATORVASTATIN CA 80 MG TABLET (FP) PO SCH (22:04)
[2020-04-12] MEDS: THIAMINE HCL 100 MG TABLET (FP) PO SCH (22:04)
[2020-04-12] MEDS: MELATONIN 5 MG TABLETS PO SCH (22:06)
[2020-04-13] MEDS: chlordiazePOXIDE HCL 10 MG CAPSULE PO SCH ×2 (05:23→18:35)
--- NOTE | 2020-04-13 09:24 | PN ---
S CIWA - CIWA Score Nausea/Vomitin-Mild Nausea/No Vomiting Muscle Tremors: 2 Anxiety: 2 Agitation: 2 Paroxysmal Sweats: No Perspiration Orientation: 0-Oriented Tacttile Disturbances: 1-Very Mild Itch/Numbness Auditory Disturbances: 0-None Visual Disturbances: 0-None Headache: 1-Very Mild CIWA-Ar Total Score: 9 S Progress Note (SOAP) Subjective: alert,irritable,anxious,interrupted sleep,pain in the body and back,ambulation with the walker Objective: 04/13/20 09:17 Vital Signs Temperature 97.5 F L 04/13/20 08:32 Pulse Rate 100 H 04/13/20 08:32 Respiratory Rate 18 04/13/20 08:32 Blood Pressure 129/86 04/13/20 08:32 O2 Sat by Pulse Oximetry (%) 95 04/13/20 08:32 Laboratory Last Values WBC 3.7 K/mm3 (4.0-10.0) L 04/10/20 07:50 RBC 4.21 M/mm3 (4.00-5.60) 04/10/20 07:50 Hgb 13.7 GM/dL (11.7-16.9) 04/10/20 07:50 Hct 41.2 % (35.4-49) D 04/10/20 07:50 MCV 97.9 fl (80-96) H 04/10/20 07:50 MCH 32.6 pg (25.7-33.7) 04/10/20 07:50 MCHC 33.3 g/dl (32.0-35.9) 04/10/20 07:50 RDW 15.4 % (11.9-15.9) 04/10/20 07:50 Plt Count 261 K/MM3 (134-434) 04/10/20 07:50 MPV 8.9 fl (7.5-11.1) 04/10/20 07:50 Sodium 140 mmol/L (136-145) 04/12/20 07:55 Potassium 4.6 mmol/L (3.5-5.1) 04/12/20 07:55 Chloride 104 mmol/L (98-107) 04/12/20 07:55 Carbon Dioxide 32 mmol/L (21-32) 04/12/20 07:55 Anion Gap 4 MMOL/L (8-16) L 04/12/20 07:55 BUN 23.5 mg/dL (7-18) H 04/12/20 07:55 Creatinine 1.9 mg/dL (0.55-1.3) H 04/12/20 07:55 Est GFR (CKD-EPI)AfAm 44.68 04/12/20 07:55 Est GFR (CKD-EPI)NonAf 38.55 04/12/20 07:55 Random Glucose 74 mg/dL (74-106) 04/12/20 07:55 Calcium 9.1 mg/dL (8.5-10.1) 04/12/20 07:55 Total Bilirubin 0.7 mg/dL (0.2-1) 04/10/20 07:50 AST 33 U/L (15-37) 04/10/20 07:50 ALT 21 U/L (13-61) 04/10/20 07:50 Alkaline Phosphatase 118 U/L (45-117) H 04/10/20 07:50 Total Protein 6.7 g/dl (6.4-8.2) 04/10/20 07:50 Albumin 2.9 g/dl (3.4-5.0) L 04/10/20 07:50 Syphilis Serology Non-reactive (NONREACTIVE) 04/10/20 07:50 COVID-19 (MELISSA) Not detected (Not Detected) 04/09/20 20:00 HIV Ag/Ab Combo Qual Negative (NEGATIVE) 04/10/20 21:25 Assessment: 04/13/20 09:18 withdrawal symptom Plan: continue detox librium regimen,renal insufficiency,encourage oral fluid water,hydration,patient requested to go on suboxone 8mgs/2 mgs sl film tid from bid, fluid,hydration
[2020-04-13] MEDS: BUPRENORPHINE/NALOXONE 8 MG/2 MG FILM PACKET SL SCH ×3 (10:40→22:12)
[2020-04-13] MEDS: PANTOPRAZOLE 40 MG TABLET PO SCH (10:40)
[2020-04-13] MEDS: PRENATAL VITAMINS W/ FOLIC ACID TABLET (FP) PO SCH (10:41)
[2020-04-13] MEDS: AMMONIUM LACTATE 12% LOTION 225 GM BOTTLE TP SCH ×2 (10:41→22:12)
[2020-04-13] MEDS: ASPIRIN COATED 81 MG TABLET.EC PO SCH (10:41)
[2020-04-13] MEDS: NICOTINE 14 MG/24 HOURS TOPICAL PATCH TD SCH (10:41)
[2020-04-13] MEDS: NIFEdipine E.R. 90 MG TABLET PO SCH (10:41)
[2020-04-13] MEDS: MELATONIN 5 MG TABLETS PO SCH (22:12)
[2020-04-13] MEDS: ATORVASTATIN CA 80 MG TABLET (FP) PO SCH (22:12)
[2020-04-13] MEDS: THIAMINE HCL 100 MG TABLET (FP) PO SCH (22:13)
[2020-04-14] MEDS ORDERED: chlordiazePOXIDE HCL 10 MG CAPSULE PO ONE (05:00)
[2020-04-14] MEDS: BUPRENORPHINE/NALOXONE 8 MG/2 MG FILM PACKET SL SCH (05:57)
[2020-04-14 09:54] VITALS: BP 112/67; PULSE 82; TEMP 97.8
--- NOTE | 2020-04-14 09:59 | PN ---
[facility] CIWA - CIWA Score Nausea/Vomitin-No Nausea/No Vomiting Muscle Tremors: None Anxiety: 1-Mildly Anxious Agitation: 0-Normal Activity Paroxysmal Sweats: No Perspiration Orientation: 0-Oriented Tacttile Disturbances: 0-None Auditory Disturbances: 0-None Visual Disturbances: 0-None Headache: 0-None Present CIWA-Ar Total Score: 1 S Progress Note (SOAP) Subjective: alert,no complaint Objective: 04/14/20 09:55 Vital Signs Temperature 97.8 F 04/14/20 09:14 Pulse Rate 82 04/14/20 09:14 Respiratory Rate 17 04/14/20 09:14 Blood Pressure 112/67 04/14/20 09:14 O2 Sat by Pulse Oximetry (%) 97 04/14/20 09:14 Assessment: 04/14/20 09:56 detox completed,no withdrawal symptom Plan: stable for discharge today,follow up with after care program [facility] arrangement
--- NOTE | 2020-04-14 10:00 | DS ---
[facility] Detox Discharge Summary Admission Date: 04/09/20 Discharge Date: 04/14/20 - History Present History: Alcohol Dependence, Cocaine Dependence Additional Comments: alert,oriented x 3 ambulation on the unit with walker lung clear on auscultation bilaterally abdomen soft,no pain,no tenderness stable for discharge today,no withdrawal symptom follow up with after care program [facility] arrangement total time of discharge 35 minutes Pertinent Past History: asthma hypertension gerd pvd ambulation with walker - Physical Exam Results Vital Signs: Vital Signs Temperature 97.8 F 04/14/20 09:14 Pulse Rate 82 04/14/20 09:14 Respiratory Rate 17 04/14/20 09:14 Blood Pressure 112/67 04/14/20 09:14 O2 Sat by Pulse Oximetry (%) 97 04/14/20 09:14 Pertinent Admission Physical Exam Findings: withdrawal signs and symptom Vital Signs Temperature 97.8 F 04/14/20 09:14 Pulse Rate 82 04/14/20 09:14 Respiratory Rate 17 04/14/20 09:14 Blood Pressure 112/67 04/14/20 09:14 O2 Sat by Pulse Oximetry (%) 97 04/14/20 09:14 Laboratory Last Values WBC 3.7 K/mm3 (4.0-10.0) L 04/10/20 07:50 RBC 4.21 M/mm3 (4.00-5.60) 04/10/20 07:50 Hgb 13.7 GM/dL (11.7-16.9) 04/10/20 07:50 Hct 41.2 % (35.4-49) D 04/10/20 07:50 MCV 97.9 fl (80-96) H 04/10/20 07:50 MCH 32.6 pg (25.7-33.7) 04/10/20 07:50 MCHC 33.3 g/dl (32.0-35.9) 04/10/20 07:50 RDW 15.4 % (11.9-15.9) 04/10/20 07:50 Plt Count 261 K/MM3 (134-434) 04/10/20 07:50 MPV 8.9 fl (7.5-11.1) 04/10/20 07:50 Sodium 140 mmol/L (136-145) 04/12/20 07:55 Potassium 4.6 mmol/L (3.5-5.1) 04/12/20 07:55 Chloride 104 mmol/L (98-107) 04/12/20 07:55 Carbon Dioxide 32 mmol/L (21-32) 04/12/20 07:55 Anion Gap 4 MMOL/L (8-16) L 04/12/20 07:55 BUN 23.5 mg/dL (7-18) H 04/12/20 07:55 Creatinine 1.9 mg/dL (0.55-1.3) H 04/12/20 07:55 Est GFR (CKD-EPI)AfAm 44.68 04/12/20 07:55 Est GFR (CKD-EPI)NonAf 38.55 04/12/20 07:55 Random Glucose 74 mg/dL (74-106) 04/12/20 07:55 Calcium 9.1 mg/dL (8.5-10.1) 04/12/20 07:55 Total Bilirubin 0.7 mg/dL (0.2-1) 04/10/20 07:50 AST 33 U/L (15-37) 04/10/20 07:50 ALT 21 U/L (13-61) 04/10/20 07:50 Alkaline Phosphatase 118 U/L (45-117) H 04/10/20 07:50 Total Protein 6.7 g/dl (6.4-8.2) 04/10/20 07:50 Albumin 2.9 g/dl (3.4-5.0) L 04/10/20 07:50 Syphilis Serology Non-reactive (NONREACTIVE) 04/10/20 07:50 COVID-19 (MELISSA) Not detected (Not Detected) 04/09/20 20:00 HIV Ag/Ab Combo Qual Negative (NEGATIVE) 04/10/20 21:25 - Treatment Hospital Course: Detox Protocol Followed, Detoxed Safely, Responded well, Discharged Condition Good, Rehab Referral Accepted Patient has Accepted a Rehab Referral to: [facility] - Medication Discharge Medications: Ambulatory Orders Ammonium Lactate Lotion [Lac-Hydrin 12% Lotion -] 1 applic TP ASDIR 07/18/17 Esomeprazole Magnesium 40 mg PO DAILY 07/18/17 Nifedipine [Nifedipine ER] 90 mg PO DAILY 07/18/17 Albuterol Sulfate Inhaler - [Ventolin Hfa Inhaler -] 1 - 2 inh PO Q4H PRN #1 inhaler 12/11/17 Aspirin [Ecotrin] 81 mg PO DAILY #30 tablet.dr 12/11/17 Ferrous Sulfate [Feosol] 325 mg PO DAILY #30 tablet 12/11/17 Nifedipine ER [Procardia XL -] 30 mg PO DAILY #30 tab.er.24 12/11/17 Atorvastatin Ca [Lipitor] 80 mg PO HS 04/09/20 Multivitamin [Multiple Vitamins] 1 tablet PO DAILY 04/09/20 - Diagnosis (1) Alcohol dependence with uncomplicated withdrawal Current Visit: Yes Status: Acute (2) Renal insufficiency Current Visit: Yes Status: Acute (3) Cocaine dependence Current Visit: Yes Status: Chronic Qualifiers: Substance use status: uncomplicated Qualified Code(s): F14.20 - Cocaine dependence, uncomplicated (4) HTN (hypertension) Current Visit: Yes Status: Chronic Qualifiers: Hypertension type: essential hypertension Qualified Code(s): I10 - Essential (primary) hypertension (5) History of asthma Current Visit: Yes Status: Chronic (6) Nicotine dependence Current Visit: Yes Status: Chronic Qualifiers: Nicotine product type: cigarettes Substance use status: uncomplicated Qualified Code(s): F17.210 - Nicotine dependence, cigarettes, uncomplicated (7) Walker as ambulation aid Current Visit: Yes Status: Acute (8) Encounter for monitoring Suboxone maintenance therapy Current Visit: Yes Status: Acute (9) Hypercholesteremia Current Visit: Yes Status: Acute - AMA Did Patient Leave Against Medical Advice: No
[2020-04-14] MEDS: NICOTINE 14 MG/24 HOURS TOPICAL PATCH TD SCH (10:16)
[2020-04-14] MEDS: NIFEdipine E.R. 90 MG TABLET PO SCH (10:16)
[2020-04-14] MEDS: ASPIRIN COATED 81 MG TABLET.EC PO SCH (10:16)
[2020-04-14] MEDS: PANTOPRAZOLE 40 MG TABLET PO SCH (10:16)
[2020-04-14] MEDS: PRENATAL VITAMINS W/ FOLIC ACID TABLET (FP) PO SCH (10:17)
[2020-04-14] MEDS: AMMONIUM LACTATE 12% LOTION 225 GM BOTTLE TP SCH (10:17)
== END 2020-04-14 12:40 | disposition other institution (70) | DRG 773 ==
LOC: YASAS 15:33 → Y6N 18:38
PROVIDERS: ADMIT Allergy & Immunology; ATTEND Allergy & Immunology
PROC: HZ2ZZZZ Detoxification Services for Substance Abuse Treatment (ICD-10-PCS; principal; 2020-04-09)
DX: F10.230 Alcohol dependence with withdrawal, uncomplicated (principal); F11.20 Opioid dependence, uncomplicated; F14.20 Cocaine dependence, uncomplicated; F17.210 Nicotine dependence, cigarettes, uncomplicated; I10 Essential (primary) hypertension; I73.9 Peripheral vascular disease, unspecified; I25.2 Old myocardial infarction; J44.9 Chronic obstructive pulmonary disease, unspecified; K21.9 Gastro-esophageal reflux disease without esophagitis; L85.3 Xerosis cutis; E78.00 Pure hypercholesterolemia, unspecified; E87.6 Hypokalemia; E72.20 Disorder of urea cycle metabolism, unspecified; N17.9 Acute kidney failure, unspecified; N28.9 Disorder of kidney and ureter, unspecified; R60.0 Localized edema; R47.81 Slurred speech; Z86.19 Personal history of other infectious and parasitic diseases; Z51.81 Encounter for therapeutic drug level monitoring; Z79.899 Other long term (current) drug therapy; Z99.89 Dependence on other enabling machines and devices; Z56.0 Unemployment, unspecified; Z59.0 Homelessness
CPT/HCPCS: 36415; 80048; 80053; 85027; 86780; 87389; 93005; 93010; Q0162; U0003

== ENCOUNTER 2020-04-14 12:48 | Inpatient (IN) | payer OTHER ==
[2020-04-14] MEDS ORDERED: MENTHOL/PHENOL 1 EACH UD MM PRN (14:15)
[2020-04-14] MEDS ORDERED: MAGNESIUM HYDROX 2400MG/30ML ORAL SUSPENSION 30 ML CUP PO PRN (14:15)
[2020-04-14] MEDS ORDERED: guaiFENesin 200 MG/10 ML 10 ML UNIT-DOSE CUPS PO PRN (14:15)
[2020-04-14] MEDS ORDERED: LOPERAMIDE HCL 2 MG CAPSULE PO PRN (14:15)
[2020-04-14] MEDS ORDERED: IBUPROFEN 400 MG TABLET (FP) PO PRN (14:15)
[2020-04-14] MEDS ORDERED: MAGNESIUM CITRATE 300 ML BOTTLE PO PRN (14:15)
[2020-04-14] MEDS ORDERED: NICOTINE POLACRILEX 2 MG GUM BUC PRN (14:15)
[2020-04-14] MEDS ORDERED: MAG HYDROX/AL HYDROX/SIMETH 30 ML UNIT-DOSE CUP PO PRN (14:15)
[2020-04-14] MEDS ORDERED: P-EPHED 60MG/TRIPROLIDI 2.5MG TABLET PO PRN (14:15)
[2020-04-14] MEDS ORDERED: ACETAMINOPHEN 325 MG TABLET (FP) PO PRN (14:15)
[2020-04-14] MEDS: AMMONIUM LACTATE 12% LOTION 225 GM BOTTLE TP SCH ×2 (16:40→21:05)
[2020-04-14] MEDS ORDERED: ATORVASTATIN CA 40 MG TABLET (FP) ONE (21:06)
[2020-04-14] MEDS: MELATONIN 5 MG TABLETS PO SCH (21:06)
[2020-04-14] MEDS: THIAMINE HCL 100 MG TABLET (FP) PO SCH (21:06)
[2020-04-14] MEDS: ATORVASTATIN CA 80 MG TABLET (FP) PO SCH (21:08)
[2020-04-14] MEDS: hydrOXYzine PAMOATE 25 MG CAPSULE (FP) PO PRN (21:08)
[2020-04-14] MEDS: BUPRENORPHINE/NALOXONE 8 MG/2 MG FILM PACKET SL SCH (21:08)
[2020-04-14] MEDS ORDERED: MASKS NR ONE (21:13)
[2020-04-14] MEDS ORDERED: PT OWN MED DRAWER 7, Y5N ONE (21:53)
[2020-04-15] MEDS: hydrOXYzine PAMOATE 25 MG CAPSULE (FP) PO PRN ×2 (09:51→21:21)
[2020-04-15] MEDS: PRENATAL VITAMINS W/ FOLIC ACID TABLET (FP) PO SCH (09:51)
[2020-04-15] MEDS: ASPIRIN COATED 81 MG TABLET.EC PO SCH (09:51)
[2020-04-15] MEDS: BUPRENORPHINE/NALOXONE 8 MG/2 MG FILM PACKET SL SCH (09:51)
[2020-04-15] MEDS: NICOTINE 7 MG/24 HOURS TOPICAL PATCH TD SCH (09:52)
[2020-04-15] MEDS: ALBUTEROL SO4 HFA INHALER IH PRN (09:53)
[2020-04-15] MEDS: AMMONIUM LACTATE 12% LOTION 225 GM BOTTLE TP SCH ×2 (09:54→21:22)
[2020-04-15] MEDS ORDERED: NIFEdipine E.R. 30 MG TABLET PO SCH (10:00)
--- NOTE | 2020-04-15 11:36 | HP ---
[facility] Rehab Assess/Revision - Admission History Ad[facility]hab [facility] (alert,oriented x 3) Date of Admission to Rehab: 04/14/2020 - Vital signs Vital Signs: Vital Signs Period Temp Pulse Resp BP Sys/Henriquez Pulse Ox Last 24 Hr 97.1 F-98.6 F 78-94 18-19 125-156/90-98 93-97 - Findings Detox History & Physical reviewed: Yes Concur with findings: Yes Comments/Additional Findings: General: No apparent distress. HEENTM: normocephalic. Neck: supple. Resp:lung clear on auscultation bilaterally. MSK: ambulation on the unit with walker. ABD: abdomen soft,no pain,no tenderness. Nuero: no cognitive deficits, alert,oriented x 4 Inpatient Rehab Admission - Rehab Decision to Admit Inpatient rehab admission?: Yes - Initial Determination Are CD services needed?: Yes Free of communicable disease: Yes Not in need of hospitalization: Yes - Rehab Admission Criteria Previous failed treatment: Yes Poor recovery environment: Yes Comorbidities: Yes Lacks judgement: Yes Patient is meeting Inpatient Rehab admission criteria:: Yes
[2020-04-15] MEDS ORDERED: ATORVASTATIN CA 40 MG TABLET (FP) ONE (18:33)
[2020-04-15] MEDS: MELATONIN 5 MG TABLETS PO SCH (21:20)
[2020-04-15] MEDS: THIAMINE HCL 100 MG TABLET (FP) PO SCH (21:20)
[2020-04-15] MEDS: ATORVASTATIN CA 80 MG TABLET (FP) PO SCH (21:20)
--- NOTE | 2020-04-16 09:02 | PN ---
[facility] Progress Note Note: PATIENT EVALUATED FOR C/O OF RESTLESSNESS, POOR SLEEP AND SWEATS. CURRENTLY ON SUBOXONE MAT FOR OPIOD USE, WITH DOSE OF 8MG SL BID WHILE IN DETOX. PATIENT HAS HX OF OUTPATIENT TREATMENT OF SUBOXONE 8MG SL TID WITH LAST DISPENSE DATE 12/31/2019. PATIENT STATES " I AM NOT FEELING TOO GOOD AND WANT TO GO BACK TO MY PRIOR DOSE". Vital Signs Temperature 98.0 F 04/16/20 08:50 Pulse Rate 73 04/16/20 08:50 Respiratory Rate 19 04/16/20 08:50 Blood Pressure 120/99 04/16/20 08:50 O2 Sat by Pulse Oximetry (%) 97 04/16/20 08:50 PE ALERT AND ORIENTED X 3 SKIN WARM, +FACIAL MOISTURE/CHILLS +PERRLA, EOMS INTACT BL GI NT, ND EXT FULL ROM, MILD TREMORS AMB AD URSULA ANXIOUS/RESTLESS A/P: OPIOD USE DISORDER SUBOXONE MAT WILL INCREASE SUBOXONE TO 8MG SL TID ENCOURAGE ORAL FLUIDS CONTINUE VISTARIL PRN ORDERED MONITOR CLINICALLY Others' Prescriptions Patient Name: Erik Morales Date: 1965 Address: [address] [address]Wmo: Male Rx Written Rx Dispensed Drug Quantity Days Supply Prescriber Name Payment Method Dispenser 10/07/2019 10/07/2019 buprenorphine-naloxone 8-2 mg sl film 48 16 Janine Chavez [email or web address] 09/23/2019 09/23/2019 buprenorphine-naloxone 8-2 mg sl film 42 14 Janine Chavez [email or web address] 08/27/2019 08/27/2019 buprenorphine-naloxone 8-2 mg sl film 39 13 Rony Beth [facility] 08/11/2019 08/11/2019 buprenorphine-naloxone 8-2 mg sl film 45 15 Dior Torres [email or web address] 07/29/2019 07/29/2019 buprenorphine-naloxone 8-2 mg sl film 42 14 Janine Chavez [email or web address] 07/22/2019 07/22/2019 buprenorphine-naloxone 8-2 mg sl film 21 7 Janine Chavez [email or web address] Patient Name: Erik Morales Date: 1965 Address: [address] [id number]: Male Rx Written Rx Dispensed Drug Quantity Days Supply Prescriber Name Payment Method Dispenser 11/05/2019 12/31/2019 buprenorphine-naloxone 8-2 mg sl film 90 30 Kevin Tucker [facility] 11/05/2019 12/04/2019 suboxone 8 mg-2 mg sl film 90 30 Kevin Tucker T [facility] 11/05/2019 11/05/2019 suboxone 8 mg-2 mg sl film 90 30 Kevin Tucker T [facility] 09/12/2019 09/12/2019 buprenorphine-naloxone 8-2 mg sl film 42 14 Kevin Tucker [facility] 04/23/2019 04/23/2019 buprenorphine-naloxone 8-2 mg sl film 14 7 [place] [facility] * - Drugs marked with an asterisk are compound drugs. If the compound drug is made up of more than one controlled substance, then each controlled substance will be a separate row in the table. Click the Report Suspicious Activity button to report information related to controlled substance suspicious activity to the [place] [employer]. Click the Send Questions/Comments button to send questions about this report to the [place] [employer], or call . Click the Substance Use Disorder Treatment button to go to the Office of Addiction Services and Supports website, www.[place].gov or call .
[2020-04-16] MEDS ORDERED: BUPRENORPHINE/NALOXONE 8 MG/2 MG FILM PACKET SL ONE (09:30)
[2020-04-16] MEDS: ASPIRIN COATED 81 MG TABLET.EC PO SCH (10:03)
[2020-04-16] MEDS: NICOTINE 7 MG/24 HOURS TOPICAL PATCH TD SCH (10:03)
[2020-04-16] MEDS: PRENATAL VITAMINS W/ FOLIC ACID TABLET (FP) PO SCH (10:03)
[2020-04-16] MEDS: NIFEdipine E.R. 90 MG TABLET PO SCH (10:05)
[2020-04-16] MEDS: AMMONIUM LACTATE 12% LOTION 225 GM BOTTLE TP SCH ×2 (10:21→21:22)
[2020-04-16] MEDS: BUPRENORPHINE/NALOXONE 8 MG/2 MG FILM PACKET SL SCH ×2 (15:00→21:23)
[2020-04-16] MEDS ORDERED: ATORVASTATIN CA 40 MG TABLET (FP) ONE (18:18)
[2020-04-16] MEDS: THIAMINE HCL 100 MG TABLET (FP) PO SCH (21:21)
[2020-04-16] MEDS: ATORVASTATIN CA 80 MG TABLET (FP) PO SCH (21:22)
[2020-04-16] MEDS: MELATONIN 5 MG TABLETS PO SCH (21:22)
[2020-04-16] MEDS: hydrOXYzine PAMOATE 25 MG CAPSULE (FP) PO PRN (21:23)
[2020-04-17] MEDS: BUPRENORPHINE/NALOXONE 8 MG/2 MG FILM PACKET SL SCH ×3 (06:17→21:16)
[2020-04-17] MEDS: ASPIRIN COATED 81 MG TABLET.EC PO SCH (09:52)
[2020-04-17] MEDS: NICOTINE 7 MG/24 HOURS TOPICAL PATCH TD SCH (09:52)
[2020-04-17] MEDS: NIFEdipine E.R. 90 MG TABLET PO SCH (09:52)
[2020-04-17] MEDS: PRENATAL VITAMINS W/ FOLIC ACID TABLET (FP) PO SCH (09:52)
[2020-04-17] MEDS: AMMONIUM LACTATE 12% LOTION 225 GM BOTTLE TP SCH ×2 (09:53→21:15)
[2020-04-17] MEDS ORDERED: ATORVASTATIN CA 40 MG TABLET (FP) ONE (18:52)
[2020-04-17] MEDS: THIAMINE HCL 100 MG TABLET (FP) PO SCH (21:14)
[2020-04-17] MEDS: MELATONIN 5 MG TABLETS PO SCH (21:14)
[2020-04-17] MEDS: ATORVASTATIN CA 80 MG TABLET (FP) PO SCH (21:15)
[2020-04-17] MEDS: hydrOXYzine PAMOATE 25 MG CAPSULE (FP) PO PRN (21:16)
[2020-04-18] MEDS: BUPRENORPHINE/NALOXONE 8 MG/2 MG FILM PACKET SL SCH ×3 (06:29→21:18)
[2020-04-18] MEDS: ASPIRIN COATED 81 MG TABLET.EC PO SCH (09:12)
[2020-04-18] MEDS: NICOTINE 7 MG/24 HOURS TOPICAL PATCH TD SCH (09:12)
[2020-04-18] MEDS: PRENATAL VITAMINS W/ FOLIC ACID TABLET (FP) PO SCH (09:12)
[2020-04-18] MEDS: AMMONIUM LACTATE 12% LOTION 225 GM BOTTLE TP SCH ×2 (09:12→21:18)
[2020-04-18] MEDS: NIFEdipine E.R. 90 MG TABLET PO SCH (09:12)
[2020-04-18] MEDS: hydrOXYzine PAMOATE 25 MG CAPSULE (FP) PO PRN ×3 (09:13→21:17)
[2020-04-18 11:12] LABS: ALBUMIN 3.6 g/dl (3.4-5.0); BILIRUBIN,TOTAL 0.4 mg/dL (0.2-1); BLOOD UREA NITROGEN 25.3 mg/dL (7-18); CALCIUM 9.5 mg/dL (8.5-10.1); CREATININE 1.6 mg/dL (0.55-1.3); POTASSIUM 4.5 mmol/L (3.5-5.1)
[2020-04-18] MEDS ORDERED: ATORVASTATIN CA 40 MG TABLET (FP) ONE (19:00)
[2020-04-18] MEDS: MELATONIN 5 MG TABLETS PO SCH (21:17)
[2020-04-18] MEDS: ATORVASTATIN CA 80 MG TABLET (FP) PO SCH (21:17)
[2020-04-18] MEDS: THIAMINE HCL 100 MG TABLET (FP) PO SCH (21:17)
[2020-04-19] MEDS: BUPRENORPHINE/NALOXONE 8 MG/2 MG FILM PACKET SL SCH ×2 (06:18→17:34)
[2020-04-19] MEDS: ASPIRIN COATED 81 MG TABLET.EC PO SCH (10:03)
[2020-04-19] MEDS: NICOTINE 7 MG/24 HOURS TOPICAL PATCH TD SCH (10:03)
[2020-04-19] MEDS: NIFEdipine E.R. 90 MG TABLET PO SCH (10:03)
[2020-04-19] MEDS: PRENATAL VITAMINS W/ FOLIC ACID TABLET (FP) PO SCH (10:03)
[2020-04-19] MEDS: AMMONIUM LACTATE 12% LOTION 225 GM BOTTLE TP SCH ×2 (10:05→21:23)
--- NOTE | 2020-04-19 13:16 | PN ---
[facility] Progress Note Note: Vital Signs Temperature 97.7 F 04/19/20 06:17 Pulse Rate 87 04/19/20 08:30 Respiratory Rate 18 04/19/20 08:30 Blood Pressure 126/93 04/19/20 08:30 O2 Sat by Pulse Oximetry (%) 97 04/19/20 06:17 Laboratory Tests 04/18/20 07:30 Sodium 141 Potassium 4.5 Chloride 106 Carbon Dioxide 29 Anion Gap 7 L BUN 25.3 H Creatinine 1.6 H Est GFR (CKD-EPI)AfAm 55.00 Est GFR (CKD-EPI)NonAf 47.45 Random Glucose 77 Calcium 9.5 Total Bilirubin 0.4 AST 42 H ALT 38 Alkaline Phosphatase 169 H Total Protein 8.0 Albumin 3.6 Labs reviewed, BUN 25.3, Creat 1.6, GFR 55. Patient reports taking diuretic Lasix prescribed by community doctor. BP is stable, and creatnine mildly elevated, therefore will hold on ordering Lasix. Continue to monitor clinically.
[2020-04-19] MEDS: hydrOXYzine PAMOATE 25 MG CAPSULE (FP) PO PRN ×2 (13:53→21:23)
[2020-04-19] MEDS: ALBUTEROL SO4 HFA INHALER IH PRN (13:56)
[2020-04-19] MEDS ORDERED: BUPRENORPHINE/NALOXONE 8 MG/2 MG FILM PACKET SL ONE (14:00)
[2020-04-19] MEDS ORDERED: ATORVASTATIN CA 40 MG TABLET (FP) ONE (18:13)
[2020-04-19] MEDS: ATORVASTATIN CA 80 MG TABLET (FP) PO SCH (21:23)
[2020-04-19] MEDS: THIAMINE HCL 100 MG TABLET (FP) PO SCH (21:23)
[2020-04-19] MEDS: MELATONIN 5 MG TABLETS PO SCH (21:23)
[2020-04-20] MEDS: BUPRENORPHINE/NALOXONE 8 MG/2 MG FILM PACKET SL SCH ×3 (06:14→17:39)
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
[2020-04-20] MEDS: NIFEdipine E.R. 90 MG TABLET PO SCH (10:34)
[2020-04-20] MEDS: PRENATAL VITAMINS W/ FOLIC ACID TABLET (FP) PO SCH (10:35)
[2020-04-20] MEDS: ASPIRIN COATED 81 MG TABLET.EC PO SCH (10:35)
[2020-04-20] MEDS: NICOTINE 7 MG/24 HOURS TOPICAL PATCH TD SCH (10:35)
[2020-04-20] MEDS: hydrOXYzine PAMOATE 25 MG CAPSULE (FP) PO PRN ×2 (10:36→21:30)
[2020-04-20] MEDS: AMMONIUM LACTATE 12% LOTION 225 GM BOTTLE TP SCH ×2 (10:38→21:29)
[2020-04-20] MEDS: FLUoxetine HCL 20 MG CAPSULE PO SCH (11:55)
[2020-04-20] MEDS ORDERED: ATORVASTATIN CA 40 MG TABLET (FP) ONE (18:57)
[2020-04-20] MEDS ORDERED: PT OWN MED DRAWER 7, Y5N ONE (20:54)
[2020-04-20] MEDS: ATORVASTATIN CA 80 MG TABLET (FP) PO SCH (21:28)
[2020-04-20] MEDS: MELATONIN 5 MG TABLETS PO SCH (21:29)
[2020-04-20] MEDS: traZODone HCL 50 MG TABLET (FP) PO SCH (21:29)
[2020-04-20] MEDS: THIAMINE HCL 100 MG TABLET (FP) PO SCH (21:29)
[2020-04-21] MEDS: BUPRENORPHINE/NALOXONE 8 MG/2 MG FILM PACKET SL SCH ×3 (06:38→19:17)
[2020-04-21] MEDS: PRENATAL VITAMINS W/ FOLIC ACID TABLET (FP) PO SCH (09:39)
[2020-04-21] MEDS: NIFEdipine E.R. 90 MG TABLET PO SCH (09:39)
[2020-04-21] MEDS: NICOTINE 7 MG/24 HOURS TOPICAL PATCH TD SCH (09:39)
[2020-04-21] MEDS: hydrOXYzine PAMOATE 25 MG CAPSULE (FP) PO PRN ×2 (09:39→21:22)
[2020-04-21] MEDS: AMMONIUM LACTATE 12% LOTION 225 GM BOTTLE TP SCH ×2 (09:39→21:22)
[2020-04-21] MEDS: FLUoxetine HCL 20 MG CAPSULE PO SCH (09:39)
[2020-04-21] MEDS: ASPIRIN COATED 81 MG TABLET.EC PO SCH (09:39)
[2020-04-21] MEDS: COLLOIDAL OATMEAL 1 BAR EACH TP PRN ×2 (13:53→14:10)
[2020-04-21] MEDS ORDERED: ATORVASTATIN CA 40 MG TABLET (FP) ONE (18:40)
[2020-04-21] MEDS: traZODone HCL 50 MG TABLET (FP) PO SCH (21:21)
[2020-04-21] MEDS: MELATONIN 5 MG TABLETS PO SCH (21:21)
[2020-04-21] MEDS: ATORVASTATIN CA 80 MG TABLET (FP) PO SCH (21:21)
[2020-04-21] MEDS: THIAMINE HCL 100 MG TABLET (FP) PO SCH (21:21)
[2020-04-22] MEDS: BUPRENORPHINE/NALOXONE 8 MG/2 MG FILM PACKET SL SCH ×3 (06:46→17:41)
[2020-04-22] MEDS: AMMONIUM LACTATE 12% LOTION 225 GM BOTTLE TP SCH ×2 (10:27→21:19)
[2020-04-22] MEDS: NICOTINE 7 MG/24 HOURS TOPICAL PATCH TD SCH (10:27)
[2020-04-22] MEDS: NIFEdipine E.R. 90 MG TABLET PO SCH (10:27)
[2020-04-22] MEDS: hydrOXYzine PAMOATE 25 MG CAPSULE (FP) PO PRN ×2 (10:27→21:19)
[2020-04-22] MEDS: ASPIRIN COATED 81 MG TABLET.EC PO SCH (10:27)
[2020-04-22] MEDS: PRENATAL VITAMINS W/ FOLIC ACID TABLET (FP) PO SCH (10:27)
[2020-04-22] MEDS: FLUoxetine HCL 20 MG CAPSULE PO SCH (10:27)
[2020-04-22] MEDS: ALBUTEROL SO4 HFA INHALER IH PRN (10:28)
[2020-04-22] MEDS ORDERED: ATORVASTATIN CA 40 MG TABLET (FP) ONE (19:20)
[2020-04-22] MEDS: MELATONIN 5 MG TABLETS PO SCH (21:18)
[2020-04-22] MEDS: ATORVASTATIN CA 80 MG TABLET (FP) PO SCH (21:18)
[2020-04-22] MEDS: traZODone HCL 50 MG TABLET (FP) PO SCH (21:18)
[2020-04-22] MEDS: THIAMINE HCL 100 MG TABLET (FP) PO SCH (21:19)
[2020-04-23] MEDS: BUPRENORPHINE/NALOXONE 8 MG/2 MG FILM PACKET SL SCH ×3 (06:39→18:12)
[2020-04-23] MEDS: hydrOXYzine PAMOATE 25 MG CAPSULE (FP) PO PRN ×2 (10:35→21:21)
[2020-04-23] MEDS: PRENATAL VITAMINS W/ FOLIC ACID TABLET (FP) PO SCH (10:35)
[2020-04-23] MEDS: ASPIRIN COATED 81 MG TABLET.EC PO SCH (10:35)
[2020-04-23] MEDS: NIFEdipine E.R. 90 MG TABLET PO SCH (10:35)
[2020-04-23] MEDS: FLUoxetine HCL 20 MG CAPSULE PO SCH (10:35)
[2020-04-23] MEDS: NICOTINE 7 MG/24 HOURS TOPICAL PATCH TD SCH (10:36)
[2020-04-23] MEDS: ALBUTEROL SO4 HFA INHALER IH PRN (10:36)
[2020-04-23] MEDS: AMMONIUM LACTATE 12% LOTION 225 GM BOTTLE TP SCH ×2 (10:37→21:21)
[2020-04-23] MEDS ORDERED: ATORVASTATIN CA 40 MG TABLET (FP) ONE (18:25)
[2020-04-23] MEDS: ATORVASTATIN CA 80 MG TABLET (FP) PO SCH (21:20)
[2020-04-23] MEDS: MELATONIN 5 MG TABLETS PO SCH (21:20)
[2020-04-23] MEDS: THIAMINE HCL 100 MG TABLET (FP) PO SCH (21:20)
[2020-04-23] MEDS: traZODone HCL 50 MG TABLET (FP) PO SCH (21:20)
[2020-04-24] MEDS: BUPRENORPHINE/NALOXONE 8 MG/2 MG FILM PACKET SL SCH ×3 (06:23→17:48)
[2020-04-24] MEDS ORDERED: PT OWN MED DRAWER 7, Y5N ONE (09:34)
[2020-04-24] MEDS: NIFEdipine E.R. 90 MG TABLET PO SCH (09:43)
[2020-04-24] MEDS: PRENATAL VITAMINS W/ FOLIC ACID TABLET (FP) PO SCH (09:43)
[2020-04-24] MEDS: ASPIRIN COATED 81 MG TABLET.EC PO SCH (09:43)
[2020-04-24] MEDS: FLUoxetine HCL 20 MG CAPSULE PO SCH (09:43)
[2020-04-24] MEDS: AMMONIUM LACTATE 12% LOTION 225 GM BOTTLE TP SCH ×2 (09:44→21:16)
[2020-04-24] MEDS: NICOTINE 7 MG/24 HOURS TOPICAL PATCH TD SCH (09:44)
[2020-04-24] MEDS: COLLOIDAL OATMEAL 1 BAR EACH TP PRN (09:44)
[2020-04-24] MEDS ORDERED: ATORVASTATIN CA 40 MG TABLET (FP) ONE (18:31)
[2020-04-24] MEDS: MELATONIN 5 MG TABLETS PO SCH (21:15)
[2020-04-24] MEDS: THIAMINE HCL 100 MG TABLET (FP) PO SCH (21:15)
[2020-04-24] MEDS: traZODone HCL 50 MG TABLET (FP) PO SCH (21:15)
[2020-04-24] MEDS: ATORVASTATIN CA 80 MG TABLET (FP) PO SCH (21:16)
[2020-04-24] MEDS: hydrOXYzine PAMOATE 25 MG CAPSULE (FP) PO PRN (22:37)
[2020-04-25] MEDS: BUPRENORPHINE/NALOXONE 8 MG/2 MG FILM PACKET SL SCH ×3 (06:38→17:58)
[2020-04-25] MEDS: PRENATAL VITAMINS W/ FOLIC ACID TABLET (FP) PO SCH (09:42)
[2020-04-25] MEDS: ASPIRIN COATED 81 MG TABLET.EC PO SCH (09:42)
[2020-04-25] MEDS: FLUoxetine HCL 20 MG CAPSULE PO SCH (09:42)
[2020-04-25] MEDS: NIFEdipine E.R. 90 MG TABLET PO SCH (09:42)
[2020-04-25] MEDS: NICOTINE 7 MG/24 HOURS TOPICAL PATCH TD SCH (09:43)
[2020-04-25] MEDS: AMMONIUM LACTATE 12% LOTION 225 GM BOTTLE TP SCH ×2 (09:43→21:48)
[2020-04-25] MEDS: hydrOXYzine PAMOATE 25 MG CAPSULE (FP) PO PRN ×2 (09:44→21:27)
[2020-04-25] MEDS: ALBUTEROL SO4 HFA INHALER IH PRN (09:44)
[2020-04-25] MEDS ORDERED: ATORVASTATIN CA 40 MG TABLET (FP) ONE (18:51)
[2020-04-25] MEDS: traZODone HCL 50 MG TABLET (FP) PO SCH (21:26)
[2020-04-25] MEDS: MELATONIN 5 MG TABLETS PO SCH (21:26)
[2020-04-25] MEDS: ATORVASTATIN CA 80 MG TABLET (FP) PO SCH (21:26)
[2020-04-25] MEDS: THIAMINE HCL 100 MG TABLET (FP) PO SCH (21:26)
[2020-04-26] MEDS: BUPRENORPHINE/NALOXONE 8 MG/2 MG FILM PACKET SL SCH ×3 (06:50→18:20)
[2020-04-26] MEDS: PRENATAL VITAMINS W/ FOLIC ACID TABLET (FP) PO SCH (09:44)
[2020-04-26] MEDS: ASPIRIN COATED 81 MG TABLET.EC PO SCH (09:44)
[2020-04-26] MEDS: hydrOXYzine PAMOATE 25 MG CAPSULE (FP) PO PRN ×2 (09:44→21:16)
[2020-04-26] MEDS: NIFEdipine E.R. 90 MG TABLET PO SCH (09:44)
[2020-04-26] MEDS: FLUoxetine HCL 20 MG CAPSULE PO SCH (09:44)
[2020-04-26] MEDS: NICOTINE 7 MG/24 HOURS TOPICAL PATCH TD SCH (09:45)
[2020-04-26] MEDS: AMMONIUM LACTATE 12% LOTION 225 GM BOTTLE TP SCH ×2 (09:45→21:17)
[2020-04-26] MEDS: ALBUTEROL SO4 HFA INHALER IH PRN (09:45)
[2020-04-26] MEDS ORDERED: ATORVASTATIN CA 40 MG TABLET (FP) ONE (18:37)
[2020-04-26] MEDS: MELATONIN 5 MG TABLETS PO SCH (21:16)
[2020-04-26] MEDS: ATORVASTATIN CA 80 MG TABLET (FP) PO SCH (21:16)
[2020-04-26] MEDS: THIAMINE HCL 100 MG TABLET (FP) PO SCH (21:16)
[2020-04-26] MEDS: traZODone HCL 50 MG TABLET (FP) PO SCH (21:16)
[2020-04-27] MEDS: BUPRENORPHINE/NALOXONE 8 MG/2 MG FILM PACKET SL SCH ×3 (06:04→18:37)
[2020-04-27] MEDS: ALBUTEROL SO4 HFA INHALER IH PRN (06:05)
[2020-04-27] MEDS: hydrOXYzine PAMOATE 25 MG CAPSULE (FP) PO PRN ×2 (10:10→21:24)
[2020-04-27] MEDS: NIFEdipine E.R. 90 MG TABLET PO SCH (10:10)
[2020-04-27] MEDS: ASPIRIN COATED 81 MG TABLET.EC PO SCH (10:10)
[2020-04-27] MEDS: FLUoxetine HCL 20 MG CAPSULE PO SCH (10:10)
[2020-04-27] MEDS: PRENATAL VITAMINS W/ FOLIC ACID TABLET (FP) PO SCH (10:10)
[2020-04-27] MEDS: AMMONIUM LACTATE 12% LOTION 225 GM BOTTLE TP SCH ×2 (10:11→21:26)
[2020-04-27] MEDS: NICOTINE 7 MG/24 HOURS TOPICAL PATCH TD SCH (10:11)
[2020-04-27] MEDS ORDERED: ATORVASTATIN CA 40 MG TABLET (FP) ONE (18:53)
[2020-04-27] MEDS: MELATONIN 5 MG TABLETS PO SCH (21:24)
[2020-04-27] MEDS: ATORVASTATIN CA 80 MG TABLET (FP) PO SCH (21:24)
[2020-04-27] MEDS: THIAMINE HCL 100 MG TABLET (FP) PO SCH (21:24)
[2020-04-27] MEDS: traZODone HCL 50 MG TABLET (FP) PO SCH (21:24)
[2020-04-27] MEDS ORDERED: PT OWN MED DRAWER 7, Y5N ONE (21:25)
[2020-04-28] MEDS: BUPRENORPHINE/NALOXONE 8 MG/2 MG FILM PACKET SL SCH ×3 (06:20→18:53)
[2020-04-28] MEDS: NICOTINE 7 MG/24 HOURS TOPICAL PATCH TD SCH (10:05)
[2020-04-28] MEDS: AMMONIUM LACTATE 12% LOTION 225 GM BOTTLE TP SCH ×2 (10:05→21:19)
[2020-04-28] MEDS: hydrOXYzine PAMOATE 25 MG CAPSULE (FP) PO PRN ×2 (10:46→21:19)
[2020-04-28] MEDS: ALBUTEROL SO4 HFA INHALER IH PRN (10:46)
[2020-04-28] MEDS: ASPIRIN COATED 81 MG TABLET.EC PO SCH (10:46)
[2020-04-28] MEDS: NIFEdipine E.R. 90 MG TABLET PO SCH (10:46)
[2020-04-28] MEDS: FLUoxetine HCL 20 MG CAPSULE PO SCH (10:46)
[2020-04-28] MEDS: PRENATAL VITAMINS W/ FOLIC ACID TABLET (FP) PO SCH (10:46)
[2020-04-28] MEDS ORDERED: ATORVASTATIN CA 40 MG TABLET (FP) ONE (18:47)
[2020-04-28] MEDS: traZODone HCL 50 MG TABLET (FP) PO SCH (21:18)
[2020-04-28] MEDS: ATORVASTATIN CA 80 MG TABLET (FP) PO SCH (21:18)
[2020-04-28] MEDS: THIAMINE HCL 100 MG TABLET (FP) PO SCH (21:18)
[2020-04-28] MEDS: MELATONIN 5 MG TABLETS PO SCH (21:18)
[2020-04-29] MEDS: BUPRENORPHINE/NALOXONE 8 MG/2 MG FILM PACKET SL SCH ×3 (06:03→17:32)
[2020-04-29] MEDS: PRENATAL VITAMINS W/ FOLIC ACID TABLET (FP) PO SCH (10:11)
[2020-04-29] MEDS: hydrOXYzine PAMOATE 25 MG CAPSULE (FP) PO PRN ×2 (10:11→21:22)
[2020-04-29] MEDS: ASPIRIN COATED 81 MG TABLET.EC PO SCH (10:11)
[2020-04-29] MEDS: FLUoxetine HCL 20 MG CAPSULE PO SCH (10:11)
[2020-04-29] MEDS: NIFEdipine E.R. 90 MG TABLET PO SCH (10:11)
[2020-04-29] MEDS: NICOTINE 7 MG/24 HOURS TOPICAL PATCH TD SCH (10:12)
[2020-04-29] MEDS: AMMONIUM LACTATE 12% LOTION 225 GM BOTTLE TP SCH ×2 (10:13→21:52)
[2020-04-29] MEDS ORDERED: ATORVASTATIN CA 40 MG TABLET (FP) ONE (18:47)
[2020-04-29] MEDS: MELATONIN 5 MG TABLETS PO SCH (21:20)
[2020-04-29] MEDS: ATORVASTATIN CA 80 MG TABLET (FP) PO SCH (21:20)
[2020-04-29] MEDS: THIAMINE HCL 100 MG TABLET (FP) PO SCH (21:20)
[2020-04-29] MEDS: traZODone HCL 50 MG TABLET (FP) PO SCH (21:20)
[2020-04-29] MEDS: COLLOIDAL OATMEAL 1 BAR EACH TP PRN (21:21)
[2020-04-30] MEDS: BUPRENORPHINE/NALOXONE 8 MG/2 MG FILM PACKET SL SCH ×3 (07:03→18:25)
[2020-04-30] MEDS: PRENATAL VITAMINS W/ FOLIC ACID TABLET (FP) PO SCH (10:09)
[2020-04-30] MEDS: ASPIRIN COATED 81 MG TABLET.EC PO SCH (10:09)
[2020-04-30] MEDS: FLUoxetine HCL 20 MG CAPSULE PO SCH (10:09)
[2020-04-30] MEDS ORDERED: PT OWN MED DRAWER 7, Y5N ONE (10:11)
[2020-04-30] MEDS: AMMONIUM LACTATE 12% LOTION 225 GM BOTTLE TP SCH ×2 (10:12→21:25)
[2020-04-30] MEDS: hydrOXYzine PAMOATE 25 MG CAPSULE (FP) PO PRN ×2 (10:12→21:24)
[2020-04-30] MEDS: NICOTINE 7 MG/24 HOURS TOPICAL PATCH TD SCH (10:15)
[2020-04-30] MEDS: NIFEdipine E.R. 90 MG TABLET PO SCH (10:16)
[2020-04-30] MEDS ORDERED: ATORVASTATIN CA 40 MG TABLET (FP) ONE (18:45)
[2020-04-30] MEDS: THIAMINE HCL 100 MG TABLET (FP) PO SCH (21:24)
[2020-04-30] MEDS: traZODone HCL 50 MG TABLET (FP) PO SCH (21:24)
[2020-04-30] MEDS: ATORVASTATIN CA 80 MG TABLET (FP) PO SCH (21:25)
[2020-04-30] MEDS: MELATONIN 5 MG TABLETS PO SCH (21:25)
[2020-05-01] MEDS: BUPRENORPHINE/NALOXONE 8 MG/2 MG FILM PACKET SL SCH ×3 (06:20→17:38)
[2020-05-01] MEDS: FLUoxetine HCL 20 MG CAPSULE PO SCH (09:51)
[2020-05-01] MEDS: ASPIRIN COATED 81 MG TABLET.EC PO SCH (09:51)
[2020-05-01] MEDS: NIFEdipine E.R. 90 MG TABLET PO SCH (09:51)
[2020-05-01] MEDS: PRENATAL VITAMINS W/ FOLIC ACID TABLET (FP) PO SCH (09:51)
[2020-05-01] MEDS: AMMONIUM LACTATE 12% LOTION 225 GM BOTTLE TP SCH ×2 (09:52→21:39)
[2020-05-01] MEDS: hydrOXYzine PAMOATE 25 MG CAPSULE (FP) PO PRN ×2 (09:52→21:39)
[2020-05-01] MEDS: ALBUTEROL SO4 HFA INHALER IH PRN (09:52)
[2020-05-01] MEDS: NICOTINE 7 MG/24 HOURS TOPICAL PATCH TD SCH (09:52)
[2020-05-01] MEDS ORDERED: ATORVASTATIN CA 40 MG TABLET (FP) ONE (18:46)
[2020-05-01] MEDS: ATORVASTATIN CA 80 MG TABLET (FP) PO SCH (21:39)
[2020-05-01] MEDS: MELATONIN 5 MG TABLETS PO SCH (21:39)
[2020-05-01] MEDS: traZODone HCL 50 MG TABLET (FP) PO SCH (21:39)
[2020-05-01] MEDS: THIAMINE HCL 100 MG TABLET (FP) PO SCH (21:39)
[2020-05-02] MEDS: BUPRENORPHINE/NALOXONE 8 MG/2 MG FILM PACKET SL SCH ×3 (06:26→18:40)
[2020-05-02] MEDS: PRENATAL VITAMINS W/ FOLIC ACID TABLET (FP) PO SCH (09:23)
[2020-05-02] MEDS: NIFEdipine E.R. 90 MG TABLET PO SCH (09:23)
[2020-05-02] MEDS: NICOTINE 7 MG/24 HOURS TOPICAL PATCH TD SCH (09:23)
[2020-05-02] MEDS: FLUoxetine HCL 20 MG CAPSULE PO SCH (09:23)
[2020-05-02] MEDS: ASPIRIN COATED 81 MG TABLET.EC PO SCH (09:23)
[2020-05-02] MEDS: hydrOXYzine PAMOATE 25 MG CAPSULE (FP) PO PRN ×2 (09:24→21:17)
[2020-05-02] MEDS: ALBUTEROL SO4 HFA INHALER IH PRN (09:24)
[2020-05-02] MEDS: COLLOIDAL OATMEAL 1 BAR EACH TP PRN (09:26)
[2020-05-02] MEDS: AMMONIUM LACTATE 12% LOTION 225 GM BOTTLE TP SCH ×2 (09:27→21:17)
[2020-05-02] MEDS ORDERED: ATORVASTATIN CA 40 MG TABLET (FP) ONE (19:04)
[2020-05-02] MEDS: MELATONIN 5 MG TABLETS PO SCH (21:17)
[2020-05-02] MEDS: traZODone HCL 50 MG TABLET (FP) PO SCH (21:17)
[2020-05-02] MEDS: THIAMINE HCL 100 MG TABLET (FP) PO SCH (21:17)
[2020-05-02] MEDS: ATORVASTATIN CA 80 MG TABLET (FP) PO SCH (21:17)
[2020-05-03] MEDS: BUPRENORPHINE/NALOXONE 8 MG/2 MG FILM PACKET SL SCH ×3 (06:04→18:00)
[2020-05-03] MEDS: hydrOXYzine PAMOATE 25 MG CAPSULE (FP) PO PRN ×2 (10:14→21:30)
[2020-05-03] MEDS: ASPIRIN COATED 81 MG TABLET.EC PO SCH (10:14)
[2020-05-03] MEDS: NIFEdipine E.R. 90 MG TABLET PO SCH (10:14)
[2020-05-03] MEDS: FLUoxetine HCL 20 MG CAPSULE PO SCH (10:14)
[2020-05-03] MEDS: ALBUTEROL SO4 HFA INHALER IH PRN ×2 (10:15→21:32)
[2020-05-03] MEDS: PRENATAL VITAMINS W/ FOLIC ACID TABLET (FP) PO SCH (10:15)
[2020-05-03] MEDS: AMMONIUM LACTATE 12% LOTION 225 GM BOTTLE TP SCH ×2 (10:16→21:30)
[2020-05-03] MEDS: NICOTINE 7 MG/24 HOURS TOPICAL PATCH TD SCH (10:16)
[2020-05-03] MEDS ORDERED: ATORVASTATIN CA 40 MG TABLET (FP) ONE (18:43)
[2020-05-03] MEDS: MELATONIN 5 MG TABLETS PO SCH (21:30)
[2020-05-03] MEDS: traZODone HCL 50 MG TABLET (FP) PO SCH (21:30)
[2020-05-03] MEDS: ATORVASTATIN CA 80 MG TABLET (FP) PO SCH (21:30)
[2020-05-03] MEDS: THIAMINE HCL 100 MG TABLET (FP) PO SCH (21:30)
[2020-05-04] MEDS: BUPRENORPHINE/NALOXONE 8 MG/2 MG FILM PACKET SL SCH ×3 (06:18→18:02)
--- NOTE | 2020-05-04 09:47 | DS ---
[facility] - [facility] Dis[facility] Summary Admission Date: 04/14/20 Discharge Date: 05/05/20 - History Present History: Cocaine dependence, MMTP Pertinent Past History: 55 yo presents w/ withdrawal symptoms from alcohol and heroin. Denies seizures, blackouts or overdoses. Longest sobriety [id number] Alcohol use began at age 17. Currently drinking 24 - 24 oz beers/day. Liquor some times but not every day. Cocaine use began at age 29. Currently uses $50/day. Heroin use began at age 34. Currently uses 5 bags/day. Nasal. Last took Suboxone last night. Has a Narcan kit @ home. States on gets Suboxone from his harm reduction center. States last picked up script in December, but not taking the way it's prescribed. States will go back on Suboxone and return to program. Nicotine use began at age 34. Smokes 10 cig/day. PMHx: HTN, PVD; COPD/Asthma - last exacerbation 1 yr ago, MHHx: Depression. Does not see a MH Provider. Denies thoughts of harming self or others. SHx: homeless. Unemployed. Denies legal issues. - Discharge Physical Exam Vital Signs: Vital Signs Temperature 97.4 F L 05/04/20 06:16 Pulse Rate 77 05/04/20 06:16 Respiratory Rate 18 05/04/20 06:16 Blood Pressure 141/92 05/04/20 06:16 O2 Sat by Pulse Oximetry (%) 96 05/04/20 06:16 Pertinent Admission Physical Exam Findings: Physical General Appearance: Yes: Intoxicated (PADMA: 0.054), Tremorous, Irritable, Sweating (Increased facial moisture), Anxious HEENTM: Yes: Hearing grossly Normal, Normocephalic, Normal Voice, ELIAS (Pupils = 5 mm), Pharynx Normal, Rhinorrhea Respiratory: Yes: Lungs Clear, Normal Breath Sounds, No Respiratory Distress Neck: Yes: No masses,lesions,Nodules, Supple Breast: Yes: Breast Exam Deferred Cardiology: Yes: Regular Rhythm, Regular Rate, S1, S2 Abdominal: Yes: Non Tender, Flat, Soft, Increased Bowel Sounds, Hernia (Umbilical hernia - soft, reducible) Genitourinary: Yes: Within Normal Limits Back: Yes: Normal Inspection Musculoskeletal: Yes: full range of Motion Extremities: Yes: Tremors, Pedal Edema, Swelling (BLE toes to upper calves. Pedal pulses +. Taut, thickened skin turgor and darkened color. Negative Mickey's.) Neurological: Yes: Fully Oriented, Alert, Motor Strength 5/5, Normal Mood/Affect - Treatment Discharge Condition: Discharge condition good (medically stable for discharge.), Outpatient referral accepted ([facility] go to [facility]) Hospital Course: Patient attended groups, had 1:1 with his provider and was seen by the psychiatric service. He had no acute or urgent medical problems while in rehab. - Medication Discharge Medications: Ambulatory Orders Nifedipine [Nifedipine ER] 90 mg PO DAILY 07/18/17 Albuterol Sulfate Inhaler - [Ventolin HFA Inhaler -] 2 inh PO Q4H PRN #1 inhaler 05/04/20 Ammonium Lactate Lotion [Lac-Hydrin 12] 1 applic TP ASDIR #1 bottle 05/04/20 Aspirin [Ecotrin] 81 mg PO DAILY #30 tablet.dr 05/04/20 Atorvastatin Ca [Lipitor] 80 mg PO HS #30 tablet 05/04/20 Buprenorphine/Naloxone [Suboxone 8Mg/2Mg Sl Film -] 1 each SL TID@0600,1200,1800 7 Days #20 film MDD 24mg 05/04/20 Esomeprazole Magnesium 40 mg PO DAILY #30 cap.sr 05/04/20 Ferrous Sulfate [Feosol] 325 mg PO DAILY #30 tablet 05/04/20 Multivitamin [Multiple Vitamins] 1 tablet PO DAILY #30 tablet 05/04/20 Nifedipine ER [Procardia XL -] 30 mg PO DAILY #30 tab.er.24 05/04/20 Fluoxetine HCl [Prozac -] 20 mg PO DAILY #30 capsule 05/05/20 traZODone HCL [Desyrel -] 50 mg PO HS #30 tablet 05/05/20 - Medication-Assisted Treatment (MAT) Medication-Assisted Treatment (MAT): Yes Medication Prescribed: Buprenorphine - Discharge Instructions Diet, activity, other medical instructions: Diet: as tolerated Activity: as tolerated Other medical instructions: Please follow up with aftercare referral. - Diagnosis (1) Opioid dependence on agonist therapy Current Visit: Yes Status: Chronic (2) Alcohol dependence with uncomplicated withdrawal Current Visit: No Status: Chronic (3) Cocaine dependence Current Visit: Yes Status: Chronic Qualifiers: Substance use status: uncomplicated Qualified Code(s): F14.20 - Cocaine dependence, uncomplicated (4) Opioid dependence with withdrawal Current Visit: No Status: Acute - Follow-up Referral Minutes to complete discharge: 15 - AMA Did Patient Leave Against Medical Advice: No
[2020-05-04] MEDS: PRENATAL VITAMINS W/ FOLIC ACID TABLET (FP) PO SCH (10:15)
[2020-05-04] MEDS: AMMONIUM LACTATE 12% LOTION 225 GM BOTTLE TP SCH ×2 (10:16→21:19)
[2020-05-04] MEDS: NICOTINE 7 MG/24 HOURS TOPICAL PATCH TD SCH (10:16)
[2020-05-04] MEDS: hydrOXYzine PAMOATE 25 MG CAPSULE (FP) PO PRN ×2 (10:16→21:18)
[2020-05-04] MEDS: ASPIRIN COATED 81 MG TABLET.EC PO SCH (10:16)
[2020-05-04] MEDS: NIFEdipine E.R. 90 MG TABLET PO SCH (10:16)
[2020-05-04] MEDS: FLUoxetine HCL 20 MG CAPSULE PO SCH (10:16)
[2020-05-04] MEDS: ALBUTEROL SO4 HFA INHALER IH PRN (10:17)
[2020-05-04] MEDS: COLLOIDAL OATMEAL 1 BAR EACH TP PRN (10:18)
[2020-05-04] MEDS ORDERED: ATORVASTATIN CA 40 MG TABLET (FP) ONE (18:44)
[2020-05-04 20:57] VITALS: TEMP 98.5
[2020-05-04] MEDS: THIAMINE HCL 100 MG TABLET (FP) PO SCH (21:18)
[2020-05-04] MEDS: traZODone HCL 50 MG TABLET (FP) PO SCH (21:18)
[2020-05-04] MEDS: ATORVASTATIN CA 80 MG TABLET (FP) PO SCH (21:19)
[2020-05-04] MEDS: MELATONIN 5 MG TABLETS PO SCH (21:19)
[2020-05-05] MEDS: BUPRENORPHINE/NALOXONE 8 MG/2 MG FILM PACKET SL SCH (06:22)
[2020-05-05 07:06] VITALS: BP 106/67; PULSE 103
--- NOTE | 2020-05-05 07:43 | PN ---
[facility] Progress Note Note: Patient is scheduled for discharge today. Scripts for 30 days supply of medications(Prozac 20 mg/day, Trazadone 50 mg/hs) are electronically transmitted to [facility], [place] [address]
[2020-05-05] MEDS: NIFEdipine E.R. 90 MG TABLET PO SCH (09:27)
[2020-05-05] MEDS: ASPIRIN COATED 81 MG TABLET.EC PO SCH (09:27)
[2020-05-05] MEDS: FLUoxetine HCL 20 MG CAPSULE PO SCH (09:27)
[2020-05-05] MEDS: hydrOXYzine PAMOATE 25 MG CAPSULE (FP) PO PRN (09:27)
[2020-05-05] MEDS: PRENATAL VITAMINS W/ FOLIC ACID TABLET (FP) PO SCH (09:27)
[2020-05-05] MEDS: AMMONIUM LACTATE 12% LOTION 225 GM BOTTLE TP SCH (09:28)
[2020-05-05] MEDS: NICOTINE 7 MG/24 HOURS TOPICAL PATCH TD SCH (09:28)
[2020-05-05] MEDS: ALBUTEROL SO4 HFA INHALER IH PRN (09:28)
[2020-05-05] MEDS ORDERED: PT OWN MED DRAWER 7, Y5N ONE (09:31)
== END 2020-05-05 09:38 | disposition home or self-care (01) | DRG 772 ==
LOC: YASAS 12:48 → Y3W 12:49
PROVIDERS: ADMIT Allergy & Immunology; ATTEND Allergy & Immunology
PROC: HZ42ZZZ Group Counseling for Substance Abuse Treatment, Cognitive-Behavioral (ICD-10-PCS; principal; 2020-04-14)
DX: F10.20 Alcohol dependence, uncomplicated (principal); F14.20 Cocaine dependence, uncomplicated; F11.20 Opioid dependence, uncomplicated; F17.210 Nicotine dependence, cigarettes, uncomplicated; F19.282 Other psychoactive substance dependence with psychoactive substance-induced sleep disorder; F19.24 Other psychoactive substance dependence with psychoactive substance-induced mood disorder; F32.9 Major depressive disorder, single episode, unspecified; I10 Essential (primary) hypertension; J44.9 Chronic obstructive pulmonary disease, unspecified; I73.9 Peripheral vascular disease, unspecified; Z87.828 Personal history of other (healed) physical injury and trauma; Z56.0 Unemployment, unspecified; Z59.0 Homelessness
CPT/HCPCS: 36415; 80053